=== PATIENT | male | born 1950 | race Caucasian/White ===

== ENCOUNTER → 2019-11-01 08:40 | Outpatient (BNVA) | payer MEDICARE, SELFPAY | PROVIDERS: Family Provider Family Medicine; PCP Family Medicine; Visit Provider Family Medicine | DX: I10 Essential (primary) hypertension (principal); E03.9 Hypothyroidism, unspecified | CPT/HCPCS: 80053; 80061; 84443 ==

== ENCOUNTER → 2020-05-01 10:16 | Outpatient (BNVA) | payer MEDICARE, SELFPAY | PROVIDERS: Family Provider Family Medicine; PCP Family Medicine; Visit Provider Family Medicine | DX: I10 Essential (primary) hypertension (principal); E78.5 Hyperlipidemia, unspecified | CPT/HCPCS: 80053; 80061 ==

== ENCOUNTER → 2020-10-27 08:31 | Outpatient (BNVA) | payer MEDICARE, SELFPAY | PROVIDERS: Family Provider Family Medicine; PCP Family Medicine; Visit Provider Family Medicine | DX: I10 Essential (primary) hypertension (principal); E03.9 Hypothyroidism, unspecified; E78.5 Hyperlipidemia, unspecified; F41.1 Generalized anxiety disorder | CPT/HCPCS: 80053; 84443; 85025 ==

== ENCOUNTER → 2021-04-27 10:21 | Outpatient (BNVA) | payer MEDICARE, SELFPAY | PROVIDERS: Family Provider Family Medicine; PCP Family Medicine; Visit Provider Family Medicine | DX: E03.9 Hypothyroidism, unspecified (principal); N13.8 Other obstructive and reflux uropathy; N40.1 Benign prostatic hyperplasia with lower urinary tract symptoms; E78.5 Hyperlipidemia, unspecified | CPT/HCPCS: 80053; 80061; 84153; 84443 ==

== ENCOUNTER → 2021-05-31 14:53 | Outpatient (BNVA) | payer MEDICARE, SELFPAY | PROVIDERS: Family Provider Family Medicine; PCP Family Medicine; Visit Provider Family Medicine | DX: E03.9 Hypothyroidism, unspecified (principal) | CPT/HCPCS: 84443 ==

== ENCOUNTER → 2021-10-26 10:24 | Outpatient (BNVA) | payer MEDICARE, SELFPAY | PROVIDERS: Family Provider Family Medicine; PCP Family Medicine; Visit Provider Family Medicine | DX: I10 Essential (primary) hypertension (principal); E03.9 Hypothyroidism, unspecified; R14.0 Abdominal distension (gaseous); K90.41 Non-celiac gluten sensitivity | CPT/HCPCS: 80053; 84443; 85025 ==

== ENCOUNTER 2022-03-27 13:30 | Inpatient (IN) | payer MEDICARE, SELFPAY ==
[2022-03-27] VITALS (57 sets, daily range): BP systolic 131–159; BP diastolic 68–111; PULSE 47–88; RESP 13–28; TEMP 36.5–36.9; O2SAT 94–99; BMI 30.5
--- NOTE | 2022-03-27 13:32 | XRR_ITS ---
PROCEDURE INFORMATION: Exam: XR Chest Exam date and time: 03/27/2022 2:00 PM Age: 71 years old Clinical indication: Pain; Chest pressure; Additional info: Chest pain TECHNIQUE: Imaging protocol: Radiologic exam of the chest. Views: 1 view. COMPARISON: CR XR chest 1V [id number] 02/03/2018 12:24 PM FINDINGS: Lungs: Unremarkable. No consolidation. Pleural spaces: Unremarkable. No pleural effusion. No pneumothorax. Heart/Mediastinum: Unremarkable. No cardiomegaly. Bones/joints: Unremarkable. Other findings: Patient rotation to the right. XR/XR chest 1V portable [id number] IMPRESSION: No acute findings.
--- NOTE | 2022-03-27 13:35 | ECG_ITS ---
[facility] Test Date: 2022-03-27 Pat Name: Esvin Cardenas Department: Room: Gender: Male Gate Agent: : 1950 Requested By: Gary Arauz Order Number: [id number] Adam MD: Davonte Quintana M.D. Measurements Intervals [place] Rate: 49 P: 7 OK: 180 QRS: 11 QRSD: 98 T: 2 QT: 411 QTc: 373 Interpretive Statements SINUS BRADYCARDIA Compared to ECG 07/26/2017 22:23:00 Sinus rhythm no longer present Electronically Signed On 03-27-2022 22:06:46 CDT by Davonte Quintana M.D. [id number]
--- NOTE | 2022-03-27 13:53 | W.ED.CHESTPA ---
HPI - Chest Pain General: Chief Complaint: Chest Pain Stated Complaint: Chest Pain Time Seen by Provider: 03/27/22 13:53 History of Present Illness: Mr. Cardenas is a 71-year-old gentleman with history of hypertension, hyperlipidemia, thyroid disorder presenting to the emergency department with concern over chest pain equivalent. He reports no history of frequent episodes and a few days ago began having episodes of discomfort with pain primarily in his back between his shoulder blades radiating down the arms into the neck and abdomen. Today he had cold sweats associated with this and symptoms have persisted where they went away before. Intensity symptoms is moderate to severe. Course has worsened. No other specific changes in health, exacerbating, or alleviating factors identified. Onset (ago): day(s) Timing of current episode: constant Prior episodes: No Onset: during rest Pain location: posterior Pain radiation: right arm, left arm, neck and abdomen Severity: severe Quality: aching and burning Relieving factors: nothing Exacerbating factors: nothing Review of Systems General: Reports: 10 or more systems reviewed and unremarkable except in HPI and below PFSH ED PFSH: Medical History Benign essential HTN BPH with obstruction/lower urinary tract symptoms Chronic post-traumatic stress disorder Generalized anxiety disorder Hypothyroidism (acquired) Major depressive disorder, recurrent, in full remission Microscopic hematuria Urinary retention with incomplete bladder emptying Surgical History Status post hemorrhoidectomy HEMORRHOID BANDING Status post right knee surgery Family History Mother , AT AGE 85-COMPLICATIONS OF DIABETES Diabetes Father , AT AGE 79-[place] No problems noted. Social History Smoking and tobacco status: former smoker Alcohol intake: never Physical Exam Const: COMMON NORMALS: alert GENERAL APPEARANCE: cooperative and well developed HENMT: COMMON NORMALS: normocephalic and atraumatic HEAD & SCALP: normocephalic and atraumatic Eye: COMMON NORMALS: conjunctivae normal CONJUNCTIVA: Yes conjunctivae normal SCLERA: sclerae normal Neck/C-Spine: COMMON NORMALS: supple GENERAL: Yes trachea midline Resp: COMMON NORMALS: normal respiratory effort and clear to auscultation bilaterally EFFORT & INSPECTION: Yes able to speak in complete sentences AUSCULTATION: clear to auscultation bilaterally Cardio: COMMON NORMALS: regular rate and regular rhythm RATE: regular rate RHYTHM: regular rhythm GI: COMMON NORMALS: Soft to palpation PALPATION: Yes Soft to palpation and No Tenderness to palpation present (GI) PERCUSSION: normal to percussion Extremity: GENERAL: Yes normal exam except as noted and No edema Neuro: COMMON NORMALS: moves all extremities SENSORIUM/ORIENTATION: Yes alert and No Orientation impaired Psych: COMMON NORMALS: mental status grossly normal and Normal thought process present THOUGHT PROCESS: Normal thought process present Course Vital Signs: Vital signs: Vital Signs Temperature 98.0 F 03/29/22 10:41 Pulse Rate 63 03/29/22 10:41 Respiratory Rate 16 03/29/22 10:41 Blood Pressure 132/62 03/29/22 10:41 Pulse Oximetry 94 03/29/22 10:41 Oxygen Delivery Me thod 03/29/22 07:37 MDM - Chest Pain Medical Decision Making 71-year-old gentleman presenting for evaluation of chest pain with typical features. EKG notable for sinus rhythm with nonspecific ST segment abnormalities, no STEMI. Laboratory studies with no leukocytosis, normal hemoglobin. Metabolic end without acute derangement requiring intervention. 2-hour delta troponin is positive. Chest x-ray with no lobar consolidation or pneumothorax. Patient given aspirin and morphine as well as GI cocktail during ED course. Patient admitted for further management. Based on patient history, evaluation, and testing as interpreted the most likely cause of the patient's condition is NSTEMI The results of ED evaluation were discussed with the patient including plan for admission due to requirement for level of care not available if discharged to prevent significant worsening/deterioration. Patient agreeable with plan. Medical Records I reviewed the patient's medical records. Lab Data I reviewed the patient's lab results. : 03/29/22 05:19 03/29/22 05:19 Radiology Impressions Chest X-Ray 03/27/22 13:32 IMPRESSION: No acute findings. Abdomen/Pelvis CT 03/27/22 17:15 IMPRESSION: No acute findings. Chest CTA 03/27/22 17:15 IMPRESSION: 1. Near complete resolution of superior segment left lower lobe pneumonia since the previous exam. 2. 1.5 cm pulmonary nodule superior segment left lower lobe consistent with scar from previous pneumonia versus neoplasm such as scar carcinoma/lung carcinoma. Followup as discussed below. 3. Mild calcified coronary artery disease. For both low risk and high risk patients, consider CT Chest at 3 months, PET/CT, or biopsy. (Reference: Farhat) References: Farhat Lebrno, et al. Guidelines for Management of Incidental Pulmonary Nodules Detected on CT Images: From the Fleischner Society 2017. Radiology. 2017;284(1):228-243. Laboratory Results WBC 8.2 10^3/uL (4.0-10.0) 03/28/22 03:40 RBC 4.41 10^6/uL (4.1-5.3) 03/28/22 03:40 Hgb 14.1 g/dL (11.7-16.6) 03/28/22 03:40 Hct 44.2 % (42.0-52.0) 03/28/22 03:40 MCV 100.2 fl (80-94) H 03/28/22 03:40 MCH 32.0 pg (28.0-34.0) 03/28/22 03:40 MCHC 31.9 g/dL (30.0-36.0) D 03/28/22 03:40 RDW 13.0 % (12.1-15.1) 03/28/22 03:40 Plt Count 282 10^3/cmm (130-400) 03/28/22 03:40 MPV 8.7 fL (7.4-10.4) 03/28/22 03:40 Neut % (Auto) 51.5 % 03/28/22 03:40 Lymph % (Auto) 33.9 % 03/28/22 03:40 Evangeline % (Auto) 8.2 % 03/28/22 03:40 Eos % (Auto) 5.3 % 03/28/22 03:40 Baso % (Auto) 0.9 % 03/28/22 03:40 Neut # (Auto) 4.22 10^3/uL (1.8-7.7) 03/28/22 03:40 Lymph # (Auto) 2.8 10^3/uL (0.8-4.8) 03/28/22 03:40 Evangeline # (Auto) 0.7 10^3/uL (0.2-0.9) 03/28/22 03:40 Eos # (Auto) 0.4 10^3/uL (0.0-0.8) 03/28/22 03:40 Baso # (Auto) 0.1 10^3/uL (0.0-0.1) 03/28/22 03:40 Nucleated RBC % (auto) 0 % 03/28/22 03:40 Nucleated RBCs # 0.0 /100WBC 03/28/22 03:40 Sodium 138 mmol/L (136-145) 03/28/22 03:40 Potassium 4.0 mmol/L (3.5-5.1) 03/28/22 03:40 Chloride 101 mmol/L (98-107) 03/28/22 03:40 Carbon Dioxide 27 mmol/L (22-29) 03/28/22 03:40 Anion Gap 14.0 (5-19) 03/28/22 03:40 BUN 12 mg/dL (8-23) 03/28/22 03:40 Creatinine 0.7 mg/dL (0.7-1.2) 03/28/22 03:40 GFR Calculation 111.5 mL/min (90-130) 03/28/22 03:40 Glucose 96 mg/dL (65-115) 03/28/22 03:40 Calculated Osmolality 286 mOsm/kg (285-295) 03/28/22 03:40 Calcium 9.0 mg/dL (8.5-10.5) 03/28/22 03:40 Total Bilirubin 0.6 mg/dL (0.15-1.2) 03/28/22 03:40 AST 40 U/L (0-40) 03/28/22 03:40 ALT 25 U/L (0-41) 03/28/22 03:40 Alkaline Phosphatase 82 U/L (40-130) 03/28/22 03:40 Troponin T Baseline 101 ng/L (0-15) H* 03/27/22 14:00 Troponin T 120 Minute 131.9 ng/L (0-15) H 03/27/22 15:53 Delta Troponin T 30.9 ABS# (0-10) H* 03/27/22 15:53 Troponin T Hi Sens 6Hr 321.6 ng/L (0-15) H 03/27/22 20:10 Troponin T Hi Sens 6Hr Delta 220.6 ng/L (0-12) H* 03/27/22 20:10 Total Protein 6.5 g/dL (6.6-8.7) L 03/28/22 03:40 Albumin 3.7 g/dL (3.5-5.2) 03/28/22 03:40 Globulin 2.8 g/dL (1.3-4.6) 03/28/22 03:40 Critical Care Time Critical Care Time: Critical Care Time: Yes Total Critical Care Time: 35 Attestation: Due to a high probability of clinically significant, possibly life threatening deterioration, the patient required my highest level of attention and preparedness to intervene emergently and I personally spent this critical care time directly and personally managing the patient. This critical care time included obtaining a history; examining the patient; pulse oximetry; ordering and review of laboratory and imaging studies; arranging urgent treatment with development of a management plan; evaluation of patient's response to treatment; frequent reassessment; and, discussions with other providers as applicable. It was exclusive of separately billable procedures. Discharge Plan Discharge Patient Disposition: Placed in Observation Admit Provider: Eder Galo Clinical Impression: Chest pain, Acute non-ST elevation myocardial infarction (NSTEMI) Discharge Diet: Cardiac Discharge Activity: Resume usual activity and Increase activity as tolerated Coding Level of Care Code ED Building Construction Ironworker for Aga Fwd Exam Comprehensive
[2022-03-27 14:08] LABS: Basophils # 0.1 10^3/uL (0.0-0.1); Basophils % 0.7 %; Eosinophils # 0.6 10^3/uL (0.0-0.8); Eosinophils % 6.3 %; Hematocrit 45.8 % (42.0-52.0); Hemoglobin 15.8 g/dL (11.7-16.6); Lymphocytes # 2.2 10^3/uL (0.8-4.8); Lymphocytes % 23.2 %; Mean Corpuscular HGB Conc 34.5 g/dL (30.0-36.0); Mean Corpuscular Hemoglobin 33.4 pg (28.0-34.0); Mean Corpuscular Volume 96.8 fl (80-94); Mean Platelet Volume 8.7 fL (7.4-10.4); Monocytes # 0.6 10^3/uL (0.2-0.9); Monocytes % 5.9 %; Neutrophils # 5.93 10^3/uL (1.8-7.7); Neutrophils % 63.6 %; Nucleated Red Blood Cells % 0 %; Platelet Count 306 10^3/cmm (130-400); Red Blood Count 4.73 10^6/uL (4.1-5.3); Red Cell Distribution Width 12.7 % (12.1-15.1); White Blood Count 9.3 10^3/uL (4.0-10.0)
[2022-03-27 14:34] LABS: Alanine Aminotransferase 26 U/L (0-41); Albumin Level 4.5 g/dL (3.5-5.2); Alkaline Phosphatase 96 U/L (40-130); Anion Gap 15.5 (5-19); Aspartate Amino Transferase 27 U/L (0-40); Blood Urea Nitrogen 12 mg/dL (8-23); Calcium 9.7 mg/dL (8.5-10.5); Carbon Dioxide 27 mmol/L (22-29); Chloride 97 mmol/L (98-107); Creatinine Clr Calc Pharmacy 106.1949; Globulin 3.2 g/dL (1.3-4.6); Glomerular Filtration Rate 95.6 mL/min (90-130); Glucose 119 mg/dL (65-115); Osmolality Calculated 281 mOsm/kg (285-295); Potassium 4.5 mmol/L (3.5-5.1); Sodium 135 mmol/L (136-145); Total Bilirubin 0.5 mg/dL (0.15-1.2); Total Protein 7.7 g/dL (6.6-8.7)
[2022-03-27 14:37] LABS: Troponin(5th) Baseline 101 ng/L (0-15)
[2022-03-27] MEDS: aspirin 81 mg Chew Tablet 324 MG PO (14:42)
[2022-03-27] MEDS: lidocaine 2% viscous 15 ML, aluminum-mag hydrox-simethicon 30 ML, sucralfate oral liq 1 GM PO (14:43)
[2022-03-27] MEDS: morphine 4 mg/mL SDV 1 mL IVP (14:44)
--- NOTE | 2022-03-27 15:32 | ECG_ITS ---
[facility] Test Date: 2022-03-27 Pat Name: Esvin Cardenas Department: Room: Gender: Male Band Director: : 1950 Requested By: Gray Arauz Order Number: [id number] Adam MD: Davonte Quintana M.D. Measurements Intervals [place] Rate: 52 P: 89 VT: 181 QRS: 12 QRSD: 101 T: -9 QT: 394 QTc: 368 Interpretive Statements SINUS BRADYCARDIA Compared to ECG 03/27/2022 13:35:44 No significant changes Electronically Signed On 03-27-2022 22:05:23 CDT by Davonte Quintana M.D. [id number]
[2022-03-27 16:56] LABS: Troponin 5 2HR 131.9 ng/L (0-15); Troponin 5 2HR Delta 30.9 ABS# (0-10)
--- NOTE | 2022-03-27 17:15 | CTR_ITS ---
PROCEDURE INFORMATION: Exam: CTA Chest Without And With Contrast Exam date and time: 03/27/2022 5:59 PM Age: 71 years old Clinical indication: Pain; Chest pressure; Additional info: Chest pain radiating to back, neck, arms, abdomen, assess for dissection, any large pe TECHNIQUE: Imaging protocol: Computed tomographic angiography of the chest without and with contrast. 3D rendering (Not supervised by radiologist): MIP and/or 3D reconstructed images were created by the technologist. Radiation optimization: All CT scans at this facility use at least one of these dose optimization techniques: automated exposure control; mA and/or kV adjustment per patient size (includes targeted exams where dose is matched to clinical indication); or iterative reconstruction. Contrast material: OMNIPAQUE 350; Contrast volume: 100 ml; Contrast route: INTRAVENOUS (IV); COMPARISON: CT chest w con* [id number] 05/19/2016 9:00 AM RADIATION DOSE METRICS: Total DLP (mGy-cm): 978.95 FINDINGS: Pulmonary arteries: Normal. No pulmonary emboli. Aorta: Calcification of the thoracic aorta and/or great vessels consistent with atherosclerotic vessel disease. Calcification of the abdominal aorta and/or iliac arteries consistent with atherosclerotic vessel disease. Lungs: Near complete resolution of superior segment left lower lobe pneumonia since the previous exam. 1.5 cm pulmonary nodule superior segment left lower lobe consistent with scar from previous pneumonia versus neoplasm. Followup as discussed below. Pleural spaces: Stable right apical pleural and/or parenchymal scarring. Heart: Mild calcified coronary artery disease. Lymph nodes: Unremarkable. No enlarged lymph nodes. Bones/joints: Unremarkable. No acute fracture. Soft tissues: Unremarkable. CT/CT angio chest [id number] IMPRESSION: 1. Near complete resolution of superior segment left lower lobe pneumonia since the previous exam. 2. 1.5 cm pulmonary nodule superior segment left lower lobe consistent with scar from previous pneumonia versus neoplasm such as scar carcinoma/lung carcinoma. Followup as discussed below. 3. Mild calcified coronary artery disease. For both low risk and high risk patients, consider CT Chest at 3 months, PET/CT, or biopsy. (Reference: Farhat) References: Farhat Lebron et al. Guidelines for Management of Incidental Pulmonary Nodules Detected on CT Images: From the Fleischner Society 2017. Radiology. 2017;284(1):228-243.
--- NOTE | 2022-03-27 17:15 | CTR_ITS ---
PROCEDURE INFORMATION: Exam: CT Abdomen And Pelvis Without Contrast Exam date and time: 03/27/2022 5:56 PM Age: 71 years old Clinical indication: Abdominal pain TECHNIQUE: Imaging protocol: Computed tomography of the abdomen and pelvis without contrast. Radiation optimization: All CT scans at this facility use at least one of these dose optimization techniques: automated exposure control; mA and/or kV adjustment per patient size (includes targeted exams where dose is matched to clinical indication); or iterative reconstruction. COMPARISON: CT abdomen pelvis wo/w [id number] 11/16/2017 1:41 PM RADIATION DOSE METRICS: Total DLP (mGy-cm): 856.93 FINDINGS: Liver: Normal. No mass. Gallbladder and bile ducts: Normal. No calcified stones. No ductal dilation. Pancreas: Normal. No ductal dilation. Spleen: Normal. No splenomegaly. Adrenal glands: Normal. No mass. Kidneys and ureters: Normal. No hydronephrosis. Stomach and bowel: Unremarkable. No obstruction. No mucosal thickening. Appendix: Normal appendix. Intraperitoneal space: Unremarkable. No free air. No significant fluid collection. Vasculature: Calcification of the abdominal aorta and/or iliac arteries consistent with atherosclerotic vessel disease. One or more calcified pelvic phleboliths. Lymph nodes: Unremarkable. No enlarged lymph nodes. Urinary bladder: Unremarkable as visualized. Reproductive: Unremarkable as visualized. Bones/joints: Mild to moderate multilevel spine degenerative changes including degenerative disc disease, spondylosis and facet degenerative changes. Soft tissues: Unremarkable. CT/CT abdomen pelvis wo con [id number] IMPRESSION: No acute findings.
--- NOTE | 2022-03-27 17:45 | P.HP_ITS ---
Providers/Chief Complaint Admitting Physician: Eder Galo Primary Care Provider: Mavis Calderon DO Chief Complaint: Chest Pain History of Present Illness Pleasant 71-year-old gentleman presents due to about 3-day history of recurrent pain inside his chest, radiating to his back, neck, arms, abdomen. Pain is bothersome. Not related to activity. Sometimes wakes him up from sleep. 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 However, he has also been having quite significant sweats, denies fever. Denies cough or shortness of breath. Did not figure that acid reflux could be causing this. He denies known history of heart disease in himself. No prior stents. He is a former smoker, quit 15-20 years ago, but does have history of HTN, HLD. His father of massive heart attack at age 79. In ER noted sinus bradycardia, nonspecific changes on EKG. First troponin elevated at 101, second troponin higher at 131.9. In ER he received aspirin, morphine, GI cocktail. So far pain resolved. Review of Systems Const: Reports: diaphoresis; Denies: fever(s) or malaise Eyes: Denies: change in vision, eye discomfort or eye redness ENMT: Denies: throat pain, oral sores or ear or mastoid pain Card: Reports: chest pain; Denies: edema, pre-syncope or dyspnea on exertion Resp: Denies: dyspnea, productive cough, change in phlegm color or hemoptysis GI: Denies: abdominal pain, nausea, vomiting, diarrhea, constipation, hematochezia or melena : Denies: flank pain, difficulty urinating, urinary frequency or hematuria Musc: Reports: back pain; Denies: joint swelling or joint redness Skin/Breast: Denies: rash or new lesions Neuro: Denies: headache(s), numbness in extremities, weakness in extremities, dizziness, confusion or seizure-like activity Endo: Denies: polyuria or polydipsia Elian/Lymph: Denies: easy bleeding or tender lymph nodes All/Imm: Denies: urticaria or tongue swelling Medications/Allergies Home Medications Medication Instructions Recorded Confirmed Last Taken Type alprazolam 0.5 mg tablet (Xanax) 0.5 mg PO BID PRN anxiety #60 tabs 10/26/21 03/27/22 Unknown Rx metoprolol tartrate 50 mg tablet See Rx Instructions .Route 11/01/21 03/27/22 03/27/22 Rx .COMPLEX #180 tabs levothyroxine 88 mcg tablet 88 mcg PO DAILY 90 days #90 tabs 11/04/21 03/27/22 03/27/22 Rx (Euthyrox) Allergies Allergy/AdvReac Type Severity Reaction Status Date / Time guaifenesin [From Mucinex] Allergy UNKNOWN Verified 10/26/21 09:47 meperidine [From Demerol] Allergy UNKNOWN Verified 10/26/21 09:47 prednisone Allergy UNKNOWN Verified 10/26/21 09:47 atorvastatin AdvReac Mild COULDN'T Verified 10/26/21 09:47 SLEEP & DIDN'T FEEL RIGHT PFSH Acute PFSH: Medical History Benign essential HTN BPH with obstruction/lower urinary tract symptoms Chronic post-traumatic stress disorder Generalized anxiety disorder Hypothyroidism (acquired) Major depressive disorder, recurrent, in full remission Microscopic hematuria Urinary retention with incomplete bladder emptying Surgical History Status post hemorrhoidectomy HEMORRHOID BANDING Status post right knee surgery Family History Mother , AT AGE 85-COMPLICATIONS OF DIABETES Diabetes Father , AT AGE 79-[place] No problems noted. Social History Smoking and tobacco status: former smoker Alcohol intake: never Vitals/I&O/Wt Last Vital Signs Temp 97.7 F 03/27/22 13:32 Pulse 72 03/27/22 17:35 Resp 17 03/27/22 17:35 BP 159/111 03/27/22 17:35 Pulse Ox 98 03/27/22 17:35 O2 Del Method 03/27/22 13:32 Weight last 48 hrs Weight 102.058 kg Physical Exam Const: COMMON NORMALS: patient oriented x3 and alert GENERAL APPEARANCE: cooperative ORIENTATION/CONSCIOUSNESS: Yes awake HENMT: COMMON NORMALS: oropharynx normal Neck/C-Spine: COMMON NORMALS: no JVD Resp: COMMON NORMALS: normal respiratory effort and clear to auscultation bilaterally AUSCULTATION: clear to auscultation bilaterally Cardio: COMMON NORMALS: no JVD, regular rhythm, S1 normal heart sound present, S2 normal heart sound present and No murmurs present (Cardio) RHYTHM: regular rhythm HEART SOUNDS: S1 normal heart sound present and S2 normal heart sound present GI: COMMON NORMALS: Normal to inspection, nondistended, normoactive bowel sounds present, Soft to palpation and non-tender PALPATION: Yes Soft to palpation Extremity: COMMON NORMALS: no joint enlargement and no pedal edema Neuro: COMMON NORMALS: patient oriented x3 and moves all extremities SENSORIUM/ORIENTATION: Yes alert Skin: COMMON NORMALS: no rashes or lesions noted GENERAL SKIN EXAM: no rashes or lesions noted Data : 03/27/22 14:00 03/27/22 14:00 A&P Assessment and plan (1) Acute non-ST elevation myocardial infarction (NSTEMI): Complete troponin EKG series. Additional assessment with CT angiogram chest. NSTEMI with chest pain, moderate to severe elevation of troponin with positive delta as well. History of HTN, HLD, obesity, remote history of smoking, history of OR in his father. Received aspirin. We will additionally start anticoagulation after CT. Continue aspirin, beta-fabian. Add statin. Assess TTE. Cardiology consultation. Plavix per cardiology. Cardiac monitoring. (2) Chest pain: Chest pain rating to the back, neck, arms, abdomen. Additionally assessed with CT angiogram chest. Plain CT abdomen pelvis. Plan HTN HLD CLAY Hypothyroidism Depression Other chronic problems noted. Attestations Medical Necessity Statement*: Place in observation for additional assessment and management of NSTEMI. Coding Level of Care Code Acute Amortization Schedule Clerk for Aga Wahl Diagnoses Acute non-ST elevation myocardial infarction (NSTEMI) I21.4 Chest pain R07.9
[2022-03-27] MEDS: iohexol 350 mg/mL 100 mL Btl IV (18:02)
--- NOTE | 2022-03-27 18:12 | USCV_ITS ---
Esvin Cardenas Age: 71 Gender: M : 1950 Exam Date: 03/27/2022 22:27 Ordering Phys: Eder Galo MD Technologist: Sofia Hylton Exam Location: [facility] [place] Indication: NSTEMIL BP: 159 / 103 HR: 65 Rhythm: Sinus Technical Quality: Adequate MEASUREMENTS (Male / Female) Normal Values 2D ECHO LV Diastolic Diameter PLAX 4.4 cm 4.2 - 5.9 / 3.9 - 5.3 cm LV Systolic Diameter PLAX 2.8 cm LV Chamber Size 3.6 cm IVS Diastolic Thickness 1.0 cm 0.6 - 1.0 / 0.6 - 0.9 cm IVS Systolic Thickness 1.8 cm LVPW Diastolic Thickness 1.5 cm 0.6 - 1.0 / 0.6 - 0.9 cm LVPW Systolic Thickness 1.6 cm RV Chamber Size 4.1 cm LVOT Diameter 2.0 cm LV Ejection Fraction 2D Teich 65.7 % LV Ejection Fraction MOD 2C 58.5 % LV Ejection Fraction 2C AL 61.0 % LA Diameter 3.3 cm LA Width 3.0 cm LA Height 4.5 cm RA Width 3.3 cm RA Height 4.2 cm Aorta at Sinotubular Diameter 2.7 cm IVC Diameter 2.0 cm M-MODE Aortic Annulus Diameter 3.5 cm LA Ao Ratio MM 1.1 MV E Point Septal Separation 0.4 cm DOPPLER AV Peak Velocity 173.0 cm/s LVOT Peak Velocity 81.0 cm/s AV Area Cont Eq vti 1.6 cm squared AV Area Cont Eq pk 1.5 cm squared MV Area PHT 3.1 cm squared Mitral E to A Ratio 0.9 MV E' Velocity 37.5 cm/s Mitral E to MV E' Ratio 12.3 Mitral E to LV E' Lateral Ratio 10.9 Mitral E to LV E' Septal Ratio 14.1 TR Peak Velocity 158.4 cm/s TR Peak Gradient 10.0 mmHg TR Mean Velocity 99.4 cm/s TR Mean Gradient 4.9 mmHg TR Velocity Time Integral 32.3 cm TV Peak E Velocity 75.0 cm/s RV Acceleration Time 0.1 s RV Ejection Time 0.3 s RV AcT/ET 0.3 FINDINGS Left Ventricle Left ventricle is normal in size. LV systolic function is normal with EF of 60-65%. No regional wall motion abnormalities are seen. Grade 1 diastolic dysfunction Right Ventricle RV is normal in size and function Right Atrium Normal in size Left Atrium Normal in size Mitral Valve Structurally normal mitral valve. No significant stenosis or regurgitation Aortic Valve Aortic valve is thickened. No significant stenosis or regurgitation is seen. Tricuspid Valve Mild tricuspid regurgitation. Insufficient TR jet to calculate RVSP. Pulmonic Valve Not well-visualized Pericardium Normal Aorta Normal in size IVC Not well visualized CONCLUSIONS Left ventricle is normal in size. LV systolic function is normal with EF of 60-65% Grade 1 diastolic dysfunction Mild tricuspid regurgitation Compared to prior echocardiogram from 2014, no significant changes are seen. Davonte Quintana MD (Electronically Signed) Final Date: 28 March 2022 08:39 S
[2022-03-27] MEDS: pantoprazole DR 40 mg Tablet PO (18:48)
[2022-03-27] MEDS: enoxaparin 100 mg/mL Syringe SUBCUT (19:54)
[2022-03-27 20:55] LABS: Troponin 5 6HR 321.6 ng/L (0-15); Troponin 5 6HR Delta 220.6 ng/L (0-12)
[2022-03-27] MEDS: atorvastatin 40 mg Tablet PO (21:09)
--- NOTE | 2022-03-27 21:33 | P.CONIM_ITS ---
Providers/Reason For Consult Consulting Physician/Specialty*: Davonte Quintana MD/Cardiology Reason for Consult*: NSTEMI Requesting Physician: Dr Sandoval Attending Physician: Eder Galo Primary Care Provider: Mavis Calderon DO History of Present Illness History of Present Illness Esvin Cardenas is a 71 year old male with past medical history of hypothyroidism who presented to the hospital with worsening bilateral shoulder blade pain for several days. Also was having discomfort and epigastrium radiating to jaw and both arms. Today got worse and decided to come to the hospital. His initial troponin was 101 that trended up to 321 at 6 hours. Since coming to the hospital chest pain has resolved. EKG shows T wave inversions in inferior leads and sinus bradycardia. Denies any prior cardiac history. Review of Systems Const: Reports: diaphoresis; Denies: fever(s) or malaise Eyes: Denies: change in vision, eye discomfort or eye redness ENMT: Denies: throat pain, oral sores or ear or mastoid pain Card: Reports: chest pain; Denies: edema, pre-syncope or dyspnea on exertion Resp: Denies: dyspnea, productive cough, change in phlegm color or hemoptysis GI: Denies: abdominal pain, nausea, vomiting, diarrhea, constipation, hematochezia or melena : Denies: flank pain, difficulty urinating, urinary frequency or hematuria Musc: Reports: back pain; Denies: joint swelling or joint redness Skin/Breast: Denies: rash or new lesions Neuro: Denies: headache(s), numbness in extremities, weakness in extremities, dizziness, confusion or seizure-like activity Endo: Denies: polyuria or polydipsia Elian/Lymph: Denies: easy bleeding or tender lymph nodes All/Imm: Denies: urticaria or tongue swelling Medications/Allergies Home Medications Medication Instructions Recorded Confirmed Last Taken Type alprazolam 0.5 mg tablet (Xanax) 0.5 mg PO BID PRN anxiety #60 tabs 10/26/21 03/27/22 Unknown Rx metoprolol tartrate 50 mg tablet See Rx Instructions .Route 11/01/21 03/27/22 03/27/22 Rx .COMPLEX #180 tabs levothyroxine 88 mcg tablet 88 mcg PO DAILY 90 days #90 tabs 11/04/21 03/27/2222 Rx (Euthyrox) Allergies Allergy/AdvReac Type Severity Reaction Status Date / Time guaifenesin [From Mucinex] Allergy UNKNOWN Verified 10/26/21 09:47 meperidine [From Demerol] Allergy UNKNOWN Verified 10/26/21 09:47 prednisone Allergy UNKNOWN Verified 10/26/21 09:47 atorvastatin AdvReac Mild COULDN'T Verified 10/26/21 09:47 SLEEP & DIDN'T FEEL RIGHT Current Medications Generic Name Dose Route Start Last Admin Trade Name John PRN Reason Stop Dose Admin Atorvastatin Calcium 40 mg 03/27/22 21:00 03/27/22 21:09 Atorvastatin 40 Mg Tablet PO 40 mg BEDTIME CONCETTA Administration Enoxaparin Sodium 100 mg 03/27/22 19:00 03/27/22 19:54 Enoxaparin 100 Mg/Ml Syringe 1 mg/kg (100 mg) 100 mg SUBCUT Administration Q12H CONCETTA Pantoprazole Sodium 40 mg 03/27/22 18:12 03/27/22 18:[address] 40 Mg Tablet PO 40 mg BID CONCETTA Administration PFSH Acute PFSH: Medical History Benign essential HTN BPH with obstruction/lower urinary tract symptoms Chronic post-traumatic stress disorder Generalized anxiety disorder Hypothyroidism (acquired) Major depressive disorder, recurrent, in full remission Microscopic hematuria Urinary retention with incomplete bladder emptying Surgical History Status post hemorrhoidectomy HEMORRHOID BANDING Status post right knee surgery Family History Mother , AT AGE 85-COMPLICATIONS OF DIABETES Diabetes Father , AT AGE 79-[place] No problems noted. Social History Smoking and tobacco status: former smoker Alcohol intake: never Vitals/I&O/Wt Last Vital Signs Temp 97.7 F 03/27/22 19:34 Pulse 67 03/27/22 19:34 Resp 18 03/27/22 19:34 BP 152/80 03/27/22 19:34 Pulse Ox 96 03/27/22 19:34 O2 Del Method 03/27/22 19:34 Weight last 48 hrs Weight 225 lb Physical Exam Narrative: GENERAL: Patient is alert, awake and oriented x3. [] NECK: No jugular vein distension. [] HEENT: No cyanosis. No icterus. No pallor. [] HEART: Regular S1 and S2. No murmur, rub or gallop. [] LUNGS: Clear to auscultate bilaterally. [] ABDOMEN: Soft, nontender and nondistended. Positive bowel sounds. No guarding, rebound or tenderness. [] CENTRAL NERVOUS SYSTEM: Grossly nonfocal. [] EXTREMITIES: Lower extremities with no edema bilaterally. Pulses palpable in the lower extremities, both dorsalis pedis and posterior tibial. [] Data : 03/28/22 03:40 03/28/22 03:40 A&P Assessment and plan (1) Acute non-ST elevation myocardial infarction (NSTEMI): (2) Benign essential HTN: (3) Dyslipidemia: Plan Patient has presented with non-ST elevation CA. We will proceed with coronary angiogram with possible percutaneous coronary intervention in the a.m. Risks and benefits of the procedure have been discussed with the patient. He understands the risks and benefits and wants to proceed with the procedure. Continue aspirin. Anticoagulation with Lovenox. Order echocardiogram. Thank you for involving us with care of this patient. We will continue to follow. Please call with questions. Consult Attestations Medical Necessity Statement: Care expected to cross 2 midnights. Coding Level of Care Code Acute Aircraft Engine Dismantler for Aga Wahl Diagnoses Acute non-ST elevation myocardial infarction (NSTEMI) I21.4 Benign essential HTN I10 Dyslipidemia E78.5
[2022-03-27] MEDS: acetaminophen 325 mg Tablet 650 MG PO (23:40)
[2022-03-28] VITALS (57 sets, daily range): BP systolic 86–147; BP diastolic 51–83; PULSE 51–97; RESP 11–21; TEMP 36.6–36.9; O2SAT 92–96
[2022-03-28 04:00] LABS: Basophils # 0.1 10^3/uL (0.0-0.1); Basophils % 0.9 %; Eosinophils # 0.4 10^3/uL (0.0-0.8); Eosinophils % 5.3 %; Hematocrit 44.2 % (42.0-52.0); Hemoglobin 14.1 g/dL (11.7-16.6); Lymphocytes # 2.8 10^3/uL (0.8-4.8); Lymphocytes % 33.9 %; Mean Corpuscular HGB Conc 31.9 g/dL (30.0-36.0); Mean Corpuscular Volume 100.2 fl (80-94); Mean Platelet Volume 8.7 fL (7.4-10.4); Monocytes # 0.7 10^3/uL (0.2-0.9); Monocytes % 8.2 %; Neutrophils # 4.22 10^3/uL (1.8-7.7); Neutrophils % 51.5 %; Nucleated Red Blood Cells % 0 %; Platelet Count 282 10^3/cmm (130-400); Red Blood Count 4.41 10^6/uL (4.1-5.3); White Blood Count 8.2 10^3/uL (4.0-10.0)
[2022-03-28 04:29] LABS: Alanine Aminotransferase 25 U/L (0-41); Albumin Level 3.7 g/dL (3.5-5.2); Alkaline Phosphatase 82 U/L (40-130); Aspartate Amino Transferase 40 U/L (0-40); Blood Urea Nitrogen 12 mg/dL (8-23); Carbon Dioxide 27 mmol/L (22-29); Chloride 101 mmol/L (98-107); Creatinine Clr Calc Pharmacy 106.1949; Globulin 2.8 g/dL (1.3-4.6); Glomerular Filtration Rate 111.5 mL/min (90-130); Glucose 96 mg/dL (65-115); Osmolality Calculated 286 mOsm/kg (285-295); Sodium 138 mmol/L (136-145); Total Bilirubin 0.6 mg/dL (0.15-1.2); Total Protein 6.5 g/dL (6.6-8.7)
[2022-03-28] MEDS: sodium chloride 0.9% 1,000 ML 50 ML IV (06:06)
--- NOTE | 2022-03-28 06:08 | XACV_ITS ---
Exam Room: [facility] Ht: 183 cm Wt: 102 kg BSA: 2.30 m2 Gender: Male : 1950 Exam Priority: Routine Procedure(s): Procedure Description: Diagnostic procedure Procedure Description: PCI procedure Procedure Description: PTCA Procedure Description: Coronary Angiography Diagnostic Cath Status: Urgent Diagnostic Findings * Left Main has no significant disease. * Circumflex has mild luminal irregularities. * Proximal Right Coronary Artery: has 99% stenosis with thrombus seen, REE: 3 flow. * Proximal Left Anterior Descending to Mid Left Anterior Descending: minimal 30% stenosis, REE: 3 flow. * Coronary angiography shows right dominance. PCI Status: Urgent PCI Indication: NSTE - ACS Interventional Findings * Procedure detail: We engaged RCA with JR4 guide catheter. A 0.014 run-through guidewire was used to cross proximal severe stenosis and was put in distal vessel. IV heparin was administered to maintain ACT above 250 S. We predilated the stenosis with 2.5 x 12 mm semicompliant balloon. This was followed by placement of 3.0 x 12 mm resolute Colon drug-eluting stent. At this time final angiogram was performed that showed excellent stent expansion, no residual stenosis and REE-3 flow. Guidewire and guide catheter were removed. Patient left the Reweaver in a stable condition.. * Proximal Right Coronary Artery: 99% stenosis treated with a AB TREK 2.50X12 RX BALLOON, and MDT R ALLEN 3.0X12 GORGE. 0% residual stenosis, REE: 3 flow. Conclusions 1. Critical proximal RCA 2. stenosis with overlying thrombus. Status post successful revascularization with GORGE x1.. 3. Proximal Right Coronary Artery was treated with a Balloon, and Drug Eluting Stent. Recommendations * Dual antiplatelet therapy with aspirin and Plavix for at least 1 year. * Aggrastat for 4 hours. * Order echocardiogram. * High intensity statin therapy. * Outpatient cardiology follow up in 4 weeks. Interventional RX Recommendation: PCI w/o planned CABG Diagnostic RX Recommendation: PCI w/o planned CABG Anticoagulation: Heparin Pressures Phase:Rest AO : 111 / 82 ( 97 ) @ 8:57:00 AM Clinical Evaluation EBL: 5mL-10mL Procedural Details Procedure Consent Obtained. Admit Source: In Patient. Pre-Procedure Time Out. Identified patient by full name and date of as verbalized by the patient/guarantor. Does the consent match the physician's order: Yes. Accurate & Complete Informed Consent: Yes. Inpatient/Outpatient History & Physical on Chart: Yes. If H&P is completed, is and addenduem needed: N/A; If yes, is the addendum complete: N/A. Visualize and Verify Site with Patient/Guarantor: N/A. Relevant Radiology Images available: N/A. Pre-op teaching completed and patient verbalized understanding. The risks, benefits, and alternatives of sedation and/or procedure were discussed by physician. The patient agrees to continue. Procedure started. [facility] Clinical Fraility Score: 3: Managing Well. Reweaver Indications: New Onset Angina. Chest Pain Symptom Assessment: Typical Angina Symptoms. Correct patient, site and procedure confirmed by cath team. Current diagnosis: NSTEMI. PERRLA. Strong, equal hand silver chaser bilaterally. Lungs clear x 5 lobes. IV Site on Arrival: 20 gauge in the left anticubital. IV Fluids: 0.9% NaCl at KVO. 0 mL infused prior to pharmaceutical laboratory technician. Pre Procedural Pulses: right radial was 2+. Pre Procedural Pulses: bilateral dorsalis pedis was 2+. Oxygen started at 2liters/min via nasal canula. right groin was prepped with chloroprep then draped in the usual sterile fashion. right radial was prepped with chloroprep then draped in the usual sterile fashion. Physician notified. Baseline sample Acquired. HR: 94 BPM. Physician arrived. Physician scrubbed in. Immediate Pre-Procedure Time Out. Correct Patient: Yes; Correct Procedure: Yes; Correct Site: Yes; Correct Patient Position: Yes; Correct Supplies: Yes; Dried Flammable Prep: Yes; Blood Products Available: N/A;. Lidocaine 1% infiltrated to the right radial. Arterial access obtained. A 5 grenadian TIG catheter in over wire. Multiple views taken of left coronary artery. Catheter redirected to the RCA. Multiple views taken of right coronary artery. Catheter out. 6 grenadian JR 4 guide catheter was inserted over the wire. Runthrough guidewire was advanced through the guide catheter to lesion in the prox RCA. Balloon inserted to lesion in the prox RCA. Inflation number : 1 A AB TREK 2.50X12 RX BALLOON was prepped and advanced across the Prox RCA , then inflated to 12 ARVIND for 0:13 seconds. Results checked. Balloon out. Stent inserted to lesion in the prox RCA. Inflation Number : 2 A ROOSE[place]ELT Rosa ALLEN 3.0X12 GORGE -Lot Number# [id number] Exp 10/17/2024 was prepped and advanced across the Prox RCA. The stent was deployed at 12 ARVIND for 0:15 seconds. Results checked. Wire out. Stent balloon out over wire. Edith Landers RN was relieved by CHRISTI BaezaR) as monitoring person. Guide catheter out. ACT drawn. Results 236 seconds. Therapeutic limits - pre-heparin administration 90-150 seconds and monitoring heparin during a vascular procedure >250 seconds. A TR Band was successful obtaining hemostatsis at the Right Radial artery insertion site. Post Procedure: Pulses reassessed and unchanged. PERRLA. Strong, equal hand silver chaser bilaterally. No VTE prophylaxis required. Total IV fluids: 25 mL. Medication's Wasted: Nitro = 49.7 mg. Complications: None. Estimated blood loss: 5mL-10mL. Responsiveness - Normal response to verbal stimuli; alert and oriented, PERRLA. Airway - Unaffected, no intervention required; spontaneous ventilation. Circulation: W/N/L, pulses unchanged. Nausea/Vomiting: No. Procedure completed. Patient transferred by wheelchair to [facility]. Vital chart was stopped. Access Site Site: Right Radial artery Sheath Size: 6 Fr Hemostasis Method: TR Band Hemostasis Success: Successful Procedure Medications Start: 7:49 AM Stop: 7:49 AM Medication: Fentanyl Amount: 50 mcg Route: I.V. Start: 7:49 AM Stop: 7:49 AM Medication: Versed Amount: 1 mg Route: I.V. Start: 7:54 AM Stop: 7:54 AM Medication: Nitrogylcerin Amount: 200 mcg Route: I.A. Start: 7:56 AM Stop: 7:56 AM Medication: Heparin Amount: 5000 units Route: I.V. Start: 8:00 AM Stop: 8:00 AM Medication: Heparin Amount: 5000 units Route: I.V. Start: 8:07 AM Stop: 8:07 AM Medication: Nitrogylcerin Amount: 100 mcg Route: I.C. Start: 8:08 AM Stop: 8:08 AM Medication: Aggrastat 12.5 mg/250 mL Amount: 51 ml Route: I.V. bolus Start: 8:08 AM Stop: 8:08 AM Medication: Aggrastat 12.5 mg/250 mL Amount: 18.4 ml/hr Route: I.V. drip Start: 8:10 AM Stop: 8:10 AM Medication: Plavix Amount: 600 mg Route: P.O. Start: 8:13 AM Stop: 8:13 AM Medication: Heparin Amount: 1000 units Route: I.V. I, the attending physician, have reviewed and verified all procedure medications. Yes, all medications given per verbal order History/Risk Factors Hypertension: Yes Dyslipidemia: Yes Peripheral Arterial Disease (PAD): No Myocardial Infarction (AL): No Obesity: No Renal Disease: No Tobacco Use: Former Prior Interventions PCI: No CABG: No Valve Surgery: No Report Signatures Finalized by Davonte Quintana MD on 03/28/2022 08:26 AM
[2022-03-28] MEDS: diphenhydrAMINE 50 mg Capsule PO (06:10)
--- NOTE | 2022-03-28 07:45 | W.PM.OPSUD ---
Surgery/Procedure H&P Update DATE OF PROCEDURE: March 28, 2022 DATE H&P PERFORMED: 03/27/22 H&P UPDATE INFORMATION: I have reviewed H&P completed within last 30 days, I have examined patient prior to procedure and No changes to prior documentation PREOP DIAGNOSIS: NSTEMI PRIMARY INDICATION FOR PROCEDURE: NSTEMI PLANNED PROCEDURE: Operation Date: 03/28/22 07:15 Proposed Procedures p Cardiac Catheterization(Left) - Davonte Quintana M.D Possible percutaneous coronary intervention PATIENT REASSESSED PRIOR TO SEDATION, WITH NO CHANGE NOTED: Yes PHYSICAL EXAM: alert, oriented x 3, clear to auscultation bilaterally and regular rate & rhythm AIRWAY EVAL/ANESTHESIA PLAN: ASA III, Local Anesthesia, Risks, benefits & alternatives of sedation and/or procedure discussed and Patient agrees to continue as planned ADDITIONAL INFORMATION: Moderate sedation
--- NOTE | 2022-03-28 08:32 | P.PN_ITS ---
Subjective Subjective: Patient underwent coronary angiogram this morning. It showed critical proximal RCA 99% stenosis. He underwent successful revascularization with GORGE x1. He is chest pain-free at this time. Vitals/I&O/Wt Last Vital Signs Temp 97.8 F 03/28/22 04:34 Pulse 69 03/28/22 06:43 Resp 16 03/28/22 04:34 BP 106/59 03/28/22 04:34 Pulse Ox 96 03/28/22 04:34 O2 Del Method 03/28/22 04:34 Weight last 48 hrs Weight 225 lb Physical Exam Narrative: GENERAL: Patient is alert, awake and oriented x3. [] NECK: No jugular vein distension. [] HEENT: No cyanosis. No icterus. No pallor. [] HEART: Regular S1 and S2. No murmur, rub or gallop. [] LUNGS: Clear to auscultate bilaterally. [] ABDOMEN: Soft, nontender and nondistended. Positive bowel sounds. No guarding, rebound or tenderness. [] CENTRAL NERVOUS SYSTEM: Grossly nonfocal. [] EXTREMITIES: Lower extremities with no edema bilaterally. Pulses palpable in the lower extremities, both dorsalis pedis and posterior tibial. [] Data : 03/28/22 03:40 03/28/22 03:40 A&P Assessment and plan (1) Acute non-ST elevation myocardial infarction (NSTEMI): (2) Benign essential HTN: (3) Dyslipidemia: Plan Coronary angiogram revealed critical 99% proximal RCA stenosis. He underwent successful revascularization with GORGE x1. Aspirin and Plavix for at least 1 year We will keep him on Aggrastat drip for 4 hours. Echo shows normal LV systolic function. Thank you for involving us with care of this patient. We will continue to follow. We will observe him in the hospital for today and can be discharged home tomorrow if stable. Please call with questions. Attestations Medical Necessity Statement*: Care expected to cross 2 midnight Coding Level of Care Code Acute Customer Accounts Advisor for Aga Wahl Diagnoses Acute non-ST elevation myocardial infarction (NSTEMI) I21.4 Benign essential HTN I10 Dyslipidemia E78.5
[2022-03-28] MEDS: pantoprazole DR 40 mg Tablet PO ×2 (09:47→17:48)
[2022-03-28] MEDS: levothyroxine 88 mcg Tablet PO (09:47)
[2022-03-28] MEDS: metoprolol tartrate 50 mg Tablet PO (09:47)
[2022-03-28] MEDS: aspirin 81 mg EC Tablet PO (09:47)
[2022-03-28] MEDS: ALPRAZolam 0.5 mg Tablet PO ×2 (09:49→21:11)
--- NOTE | 2022-03-28 15:37 | P.PN_ITS ---
Subjective Subjective: Hospital course, labs appreciated. Today morning seen post angiogram. Underwent PCI. Denies any nausea, vomiting, headache. Remains on room air. Vitals/I&O/Wt Last Vital Signs Temp 98.1 F 03/28/22 12:00 Pulse 57 L 03/28/22 14:00 Resp 17 03/28/22 14:00 BP 131/80 03/28/22 14:00 Pulse Ox 93 03/28/22 12:00 O2 Del Method 03/28/22 12:00 03/28/22 03/28/22 03/28/22 06:59 14:59 22:59 Intake Total 120 / 120 Balance 120 / 120 Weight last 48 hrs Weight 102.058 kg Physical Exam Const: COMMON NORMALS: patient oriented x3 and alert GENERAL APPEARANCE: cooperative ORIENTATION/CONSCIOUSNESS: Yes awake HENMT: COMMON NORMALS: oropharynx normal Neck/C-Spine: COMMON NORMALS: no JVD Resp: COMMON NORMALS: normal respiratory effort and clear to auscultation bilaterally AUSCULTATION: clear to auscultation bilaterally Cardio: COMMON NORMALS: no JVD, regular rhythm, S1 normal heart sound present, S2 normal heart sound present and No murmurs present (Cardio) RHYTHM: regular rhythm HEART SOUNDS: S1 normal heart sound present and S2 normal heart sound present GI: COMMON NORMALS: Normal to inspection, nondistended, normoactive bowel sounds present, Soft to palpation and non-tender PALPATION: Yes Soft to palpation Extremity: COMMON NORMALS: no joint enlargement and no pedal edema Neuro: COMMON NORMALS: patient oriented x3 and moves all extremities SENSORIUM/ORIENTATION: Yes alert Skin: COMMON NORMALS: no rashes or lesions noted GENERAL SKIN EXAM: no rashes or lesions noted Data : 03/28/22 03:40 03/28/22 03:40 A&P Assessment and plan (1) Acute non-ST elevation myocardial infarction (NSTEMI): Post PCI with GORGE to RCA. Appreciate cardiology recommendation. Aspirin, Plavix, statin. Metoprolol 25 mg twice daily. Patient having bradycardia. Continue telemetry monitoring. Check A1c, statin. We will try to add GLADYS inhibitor prior to discharge. Echocardiogram shows an EF of 60 to 65%, grade 1 diastolic dysfunction without regional wall motion abnormality, mild TR (2) Chest pain: (3) Dyslipidemia: (4) Benign essential HTN: (5) Hypothyroidism (acquired): Plan HTN HLD CLAY Hypothyroidism Depression Other chronic problems noted. Full code. Cardiac diet. Protonix for PUD prophylaxis Lovenox for DVT prophylaxis. Attestations Medical Necessity Statement*: Requires further hospitalization for management of non-ST elevation OH post PCI care Time Spent in Patient Care: Greater than 35 minutes Coding Level of Care Code Acute Logistics Engineering Manager for Chg Fwd Diagnoses Acute non-ST elevation myocardial infarction (NSTEMI) I21.4 Chest pain R07.9 Dyslipidemia E78.5 Benign essential HTN I10 Hypothyroidism (acquired) E03.9
[2022-03-28 16:59] LABS: Thyroid Stimulating Hormone 0.94 uIU/mL (0.27-4.20)
[2022-03-28 17:12] LABS: Iron 109 ug/dL (59-158); Percent Saturation 49.3 % (20-50); Total Iron Binding Capacity 221 mcg/dl; Unsaturated Iron Binding 112 ug/dL (112-347)
--- NOTE | 2022-03-28 19:02 | PC.NURSE ---
this nurse has reviewed and agrees with all documentation and medication administration by Janet duron student Nurse
[2022-03-28] MEDS: atorvastatin 40 mg Tablet PO (21:11)
[2022-03-29 00:08] VITALS: BP 123/61; PULSE 65; RESP 18; TEMP 37.1; O2SAT 94
[2022-03-29 04:00] VITALS: BP 132/62; PULSE 69; RESP 20; TEMP 36.6; O2SAT 94
[2022-03-29 06:14] VITALS: PULSE 57
[2022-03-29 06:27] LABS: Basophils # 0.1 10^3/uL (0.0-0.1); Basophils % 0.6 %; Eosinophils # 0.3 10^3/uL (0.0-0.8); Eosinophils % 4.3 %; Hematocrit 43.8 % (42.0-52.0); Hemoglobin 14.6 g/dL (11.7-16.6); Lymphocytes # 2.4 10^3/uL (0.8-4.8); Lymphocytes % 31.4 %; Mean Corpuscular HGB Conc 33.3 g/dL (30.0-36.0); Mean Corpuscular Hemoglobin 32.8 pg (28.0-34.0); Mean Corpuscular Volume 98.4 fl (80-94); Mean Platelet Volume 9.1 fL (7.4-10.4); Monocytes # 0.6 10^3/uL (0.2-0.9); Monocytes % 8.2 %; Neutrophils # 4.26 10^3/uL (1.8-7.7); Neutrophils % 55.2 %; Nucleated Red Blood Cells % 0 %; Platelet Count 283 10^3/cmm (130-400); Red Blood Count 4.45 10^6/uL (4.1-5.3); Red Cell Distribution Width 13.2 % (12.1-15.1); White Blood Count 7.7 10^3/uL (4.0-10.0)
[2022-03-29 06:39] LABS: Estmated Average Glucose 126
[2022-03-29 06:44] LABS: Alanine Aminotransferase 25 U/L (0-41); Albumin Level 3.6 g/dL (3.5-5.2); Alkaline Phosphatase 89 U/L (40-130); Anion Gap 13.8 (5-19); Aspartate Amino Transferase 33 U/L (0-40); Blood Urea Nitrogen 19 mg/dL (8-23); Calcium 9.1 mg/dL (8.5-10.5); Carbon Dioxide 26 mmol/L (22-29); Chloride 102 mmol/L (98-107); Chol HDL Ratio 3.45 mg/dL (1.0-5.00); Cholesterol 190 mg/dL (0-200); Globulin 3.2 g/dL (1.3-4.6); Glomerular Filtration Rate 83.4 mL/min (90-130); Glucose 107 mg/dL (65-115); HDL Cholesterol 55 mg/dL (60-100); LDL Cholesterol Calculated 121 mg/dL (50-129); Osmolality Calculated 289 mOsm/kg (285-295); Potassium 3.8 mmol/L (3.5-5.1); Sodium 138 mmol/L (136-145); Total Bilirubin 0.6 mg/dL (0.15-1.2); Total Protein 6.8 g/dL (6.6-8.7); Triglycerides 68 mg/dL (0-150); VLDL Cholestrol Calculation 14 mg/dL (0-30)
[2022-03-29 07:37] VITALS: BP 132/62; PULSE 63; RESP 16; TEMP 36.7; O2SAT 94
[2022-03-29] MEDS: metoprolol tartrate 50 mg Tablet 25 MG PO (08:32)
--- NOTE | 2022-03-29 08:32 | PM.PN ---
Subjective Subjective: Patient is doing well. Underwent successful revascularization of proximal RCA yesterday with GORGE x1. No chest pain overnight. Vitals/I&O/Wt Last Vital Signs Temp 98.0 F 03/29/22 07:37 Pulse 63 03/29/22 07:37 Resp 16 03/29/22 07:37 BP 132/62 03/29/22 07:37 Pulse Ox 94 03/29/22 07:37 O2 Del Method 03/29/22 07:37 03/28/22 03/29/22 03/29/22 22:59 06:59 14:59 Intake Total 150 / 270 200 / 470 Balance 150 / 270 200 / 470 Weight last 48 hrs Weight 225 lb Physical Exam Narrative: GENERAL: Patient is alert, awake and oriented x3. [] NECK: No jugular vein distension. [] HEENT: No cyanosis. No icterus. No pallor. [] HEART: Regular S1 and S2. No murmur, rub or gallop. [] LUNGS: Clear to auscultate bilaterally. [] ABDOMEN: Soft, nontender and nondistended. Positive bowel sounds. No guarding, rebound or tenderness. [] CENTRAL NERVOUS SYSTEM: Grossly nonfocal. [] EXTREMITIES: Lower extremities with no edema bilaterally. Pulses palpable in the lower extremities, both dorsalis pedis and posterior tibial. [] Data : 03/29/22 05:19 03/29/22 05:19 A&P Assessment and plan (1) Acute non-ST elevation myocardial infarction (NSTEMI): (2) Benign essential HTN: (3) Dyslipidemia: Plan Coronary angiogram revealed critical 99% proximal RCA stenosis. He underwent successful revascularization with GORGE x1. Patient is stable stable. Continue aspirin and Plavix. Will continue with atorvastatin. Thank you for involving us with care of this patient. Patient stable to be discharged from cardiology standpoint. Please call with questions Attestations Medical Necessity Statement*: Care expected to cross 2 midnights. Coding Level of Care Code Acute Vertical Mill Operator for Aga Wahl Diagnoses Acute non-ST elevation myocardial infarction (NSTEMI) I21.4 Benign essential HTN I10 Dyslipidemia E78.5
[2022-03-29] MEDS: levothyroxine 88 mcg Tablet PO (08:33)
[2022-03-29] MEDS: aspirin 81 mg EC Tablet PO (08:33)
[2022-03-29] MEDS: pantoprazole DR 40 mg Tablet PO (08:33)
[2022-03-29] MEDS: clopidogrel 75 mg Tablet PO (08:34)
[2022-03-29] MEDS: ALPRAZolam 0.5 mg Tablet PO (08:38)
--- NOTE | 2022-03-29 09:54 | P.DS_ITS ---
Discharge Providers Date of Admission: 03/28/22 08:32 Date of Discharge: March 29, 2022 Attending Provider at Admission: Eder Galo Attending Provider at Discharge: John Hammond MD Consults: Cardiology: Dr. Quintana Primary Care Provider: Mavis Calderon DO Diagnoses at Discharge Discharge Diagnosis (1) Acute non-ST elevation myocardial infarction (NSTEMI): Status: Acute (2) Chest pain: Status: Acute (3) Dyslipidemia: Status: Acute (4) Benign essential HTN: Status: Chronic (5) Hypothyroidism (acquired): Status: Chronic Reason for Visit Reason for Visit: Chest Pain Hospital Course Hospital Course Pleasant 71-year-old gentleman presents due to about 3-day history of recurrent pain inside his chest, radiating to his back, neck, arms, abdomen.? Pain is bothersome.? Not related to activity.? Sometimes wakes him up from sleep.? 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 However, he has also been having quite significant sweats, denies fever.? Denies cough or shortness of breath.? Did not figure that acid reflux could be causing this.? He denies known history of heart disease in himself.? No prior stents.? He is a former smoker, quit 15-20 years ago, but does have history of HTN, HLD.? His father of massive heart attack at age 79.? In ER noted sinus bradycardia, nonspecific changes on EKG.? First troponin elevated at 101, second troponin higher at 131.9. Patient was admitted to hospital for further evaluation and management of non-ST elevation ID. Cardiology was consulted and he underwent cardiac angiogram and PCI with GORGE to RCA on 03/28. His hospitalization and procedure was unremarkable. His cardiac medications were further adjusted. Is been discharged in medically stable condition with advised to follow-up with [facility] nurse practitioner within next 1 week, Dr. Quintana within next 1 month and his primary care provider within next 10 days. Physical Exam Const: COMMON NORMALS: patient oriented x3 and alert GENERAL APPEARANCE: cooperative ORIENTATION/CONSCIOUSNESS: Yes awake HENMT: COMMON NORMALS: oropharynx normal Neck/C-Spine: COMMON NORMALS: no JVD Resp: COMMON NORMALS: normal respiratory effort and clear to auscultation bilaterally AUSCULTATION: clear to auscultation bilaterally Cardio: COMMON NORMALS: no JVD, regular rhythm, S1 normal heart sound present, S2 normal heart sound present and No murmurs present (Cardio) RHYTHM: regular rhythm HEART SOUNDS: S1 normal heart sound present and S2 normal heart sound present GI: COMMON NORMALS: Normal to inspection, nondistended, normoactive bowel sounds present, Soft to palpation and non-tender PALPATION: Yes Soft to palpation Extremity: COMMON NORMALS: no joint enlargement and no pedal edema Neuro: COMMON NORMALS: patient oriented x3 and moves all extremities SENSORIUM/ORIENTATION: Yes alert Skin: COMMON NORMALS: no rashes or lesions noted GENERAL SKIN EXAM: no rashes or lesions noted Discharge Data Studies Completed and Pending Completed Studies During Hospitalization Category Date Time Status CT abdomen pelvis wo con [id number] Stat Cat Scan 03/27/22 17:15 Completed CTA thoracic [CT angio chest [id number]] Stat Cat Scan 03/27/22 17:15 Completed STUDENT FINANCE SPECIALIST request for service Routine Exams 03/28/22 06:08 Completed XR chest 1V portable [id number] Stat Exams 03/27/22 13:32 Completed CV. echo complete* [id number] Routine Ultrasound 03/27/22 18:12 Completed Pending at discharge Category Date Time Status Complete Blood Count w/Auto AM LABS Lab 03/30/22 04:00 Ordered Comprehensive Metabolic Panel AM LABS Lab 03/30/22 04:00 Ordered Radiology Impressions Chest X-Ray 03/27/22 13:32 IMPRESSION: No acute findings. Abdomen/Pelvis CT 03/27/22 17:15 IMPRESSION: No acute findings. Chest CTA 03/27/22 17:15 IMPRESSION: 1. Near complete resolution of superior segment left lower lobe pneumonia since the previous exam. 2. 1.5 cm pulmonary nodule superior segment left lower lobe consistent with scar from previous pneumonia versus neoplasm such as scar carcinoma/lung carcinoma. Followup as discussed below. 3. Mild calcified coronary artery disease. For both low risk and high risk patients, consider CT Chest at 3 months, PET/CT, or biopsy. (Reference: Farhat) References: Farhat Lebron et al. Guidelines for Management of Incidental Pulmonary Nodules Detected on CT Images: From the Fleischner Society 2017. Radiology. 2017;284(1):228-243. Echocardiogram CONCLUSIONS ?Left ventricle is normal in size. ?LV systolic function is normal with EF of 60-65% ?Grade 1 diastolic dysfunction ?Mild tricuspid regurgitation ?Compared to prior echocardiogram from 2013, no significant ?changes are seen. ?Davonte Quintana MD ?(Electronically Signed) ?Final Date:? ? ? 28 March 2022 ? 08:39 Laboratory Results WBC 7.7 10^3/uL (4.0-10.0) 03/29/22 05:19 RBC 4.45 10^6/uL (4.1-5.3) 03/29/22 05:19 Hgb 14.6 g/dL (11.7-16.6) 03/29/22 05:19 Hct 43.8 % (42.0-52.0) 03/29/22 05:19 MCV 98.4 fl (80-94) H 03/29/22 05:19 MCH 32.8 pg (28.0-34.0) 03/29/22 05:19 MCHC 33.3 g/dL (30.0-36.0) 03/29/22 05:19 RDW 13.2 % (12.1-15.1) 03/29/22 05:19 Plt Count 283 10^3/cmm (130-400) 03/29/22 05:19 MPV 9.1 fL (7.4-10.4) 03/29/22 05:19 Neut % (Auto) 55.2 % 03/29/22 05:19 Lymph % (Auto) 31.4 % 03/29/22 05:19 [place] % (Auto) 8.2 % 03/29/22 05:19 Eos % (Auto) 4.3 % 03/29/22 05:19 Baso % (Auto) 0.6 % 03/29/22 05:19 Neut # (Auto) 4.26 10^3/uL (1.8-7.7) 03/29/22 05:19 Lymph # (Auto) 2.4 10^3/uL (0.8-4.8) 03/29/22 05:19 [place] # (Auto) 0.6 10^3/uL (0.2-0.9) 03/29/22 05:19 Eos # (Auto) 0.3 10^3/uL (0.0-0.8) 03/29/22 05:19 Baso # (Auto) 0.1 10^3/uL (0.0-0.1) 03/29/22 05:19 Nucleated RBC % (auto) 0 % 03/29/22 05:19 Nucleated RBCs # 0.0 /100WBC 03/29/22 05:19 Sodium 138 mmol/L (136-145) 03/29/22 05:19 Potassium 3.8 mmol/L (3.5-5.1) 03/29/22 05:19 Chloride 102 mmol/L (98-107) 03/29/22 05:19 Carbon Dioxide 26 mmol/L (22-29) 03/29/22 05:19 Anion Gap 13.8 (5-19) 03/29/22 05:19 BUN 19 mg/dL (8-23) 03/29/22 05:19 Creatinine 0.9 mg/dL (0.7-1.2) 03/29/22 05:19 GFR Calculation 83.4 mL/min (90-130) L 03/29/22 05:19 Glucose 107 mg/dL (65-115) 03/29/22 05:19 Estimat Average Glucose 126 03/29/22 05:19 Hemoglobin A1c 6.0 % (4.0-6.0) 03/29/22 05:19 Calculated Osmolality 289 mOsm/kg (285-295) 03/29/22 05:19 Calcium 9.1 mg/dL (8.5-10.5) 03/29/22 05:19 Iron 109 ug/dL (59-158) 03/28/22 16:01 TIBC 221 mcg/dl 03/28/22 16:01 % Saturation 49.3 % (20-50) 03/28/22 16:01 Unsat Iron Binding 112 ug/dL (112-347) 03/28/22 16:01 Total Bilirubin 0.6 mg/dL (0.15-1.2) 03/29/22 05:19 AST 33 U/L (0-40) 03/29/22 05:19 ALT 25 U/L (0-41) 03/29/22 05:19 Alkaline Phosphatase 89 U/L (40-130) 03/29/22 05:19 Troponin T Baseline 101 ng/L (0-15) H* 03/27/22 14:00 Troponin T 120 Minute 131.9 ng/L (0-15) H 03/27/22 15:53 Delta Troponin T 30.9 ABS# (0-10) H* 03/27/22 15:53 Troponin T Hi Sens 6Hr 321.6 ng/L (0-15) H 03/27/22 20:10 Troponin T Hi Sens 6Hr Delta 220.6 ng/L (0-12) H* 03/27/22 20:10 Total Protein 6.8 g/dL (6.6-8.7) 03/29/22 05:19 Albumin 3.6 g/dL (3.5-5.2) 03/29/22 05:19 Globulin 3.2 g/dL (1.3-4.6) 03/29/22 05:19 Triglycerides 68 mg/dL (0-150) 03/29/22 05:19 Cholesterol 190 mg/dL (0-200) 03/29/22 05:19 LDL Cholesterol, Calc 121 mg/dL (50-129) 03/29/22 05:19 Total VLDL Cholesterol 14 mg/dL (0-30) 03/29/22 05:19 HDL Cholesterol 55 mg/dL (60-100) L 03/29/22 05:19 Cholesterol/HDL Ratio 3.45 mg/dL (1.0-5.00) 03/29/22 05:19 TSH 0.94 uIU/mL (0.27-4.20) 03/28/22 16:01 Procedures Performed labor specialist Procedure Diagnostic Cath Status: ? ? Urgent Diagnostic Findings ? * Left Main has no significant disease. ? * Circumflex has mild luminal irregularities. ? * Proximal Right Coronary Artery: has 99% stenosis with thrombus seen, REE: 3 flow. ? * Proximal Left Anterior Descending to Mid Left Anterior Descending: minimal 30% stenosis, REE: 3 flow. ? * Coronary angiography shows right dominance. PCI Status: ? ? Urgent PCI Indication: ? ? NSTE - ACS Interventional Findings ? * Procedure detail: We engaged RCA with JR4 guide catheter.? A 0.014 run- through guidewire was used to cross proximal severe stenosis and was put in distal vessel.? IV heparin was administered to maintain ACT above 250 S. We predilated the stenosis with 2.5 x 12 mm semicompliant balloon.? This was followed by placement of 3.0 x 12 mm resolute [place] drug-eluting stent. At this time final angiogram was performed that showed excellent stent expansion, no residual stenosis and REE-3 flow. Guidewire and guide catheter were removed. Patient left the [employer] in a stable condition. ? * Proximal Right Coronary Artery:? 99% stenosis treated with a AB TREK 2.50X12 RX BALLOON, and MDT R ALLEN 3.0X12 GORGE. 0% residual stenosis, REE: 3 flow. Conclusions ? 1. Critical proximal RCA ? 2. stenosis with overlying thrombus. Status post successful revascularization with GORGE x1. ? 3. Proximal Right Coronary Artery was treated with a Balloon, and Drug Eluting Stent. Vitals Last Vital Signs Temp 98.0 F 03/29/22 07:37 Pulse 63 03/29/22 07:37 Resp 16 03/29/22 07:37 BP 132/62 03/29/22 07:37 Pulse Ox 94 03/29/22 07:37 O2 Del Method 03/29/22 07:37 Discharge Plan Discharge Patient Disposition: Home Condition: Stable Prescriptions: New atorvastatin 40 mg Tablet 40 mg PO BEDTIME Qty: 30 0RF clopidogrel 75 mg Tablet 75 mg PO DAILY Qty: 30 0RF aspirin 81 mg Tablet,Delayed Release (Dr/Ec) 81 mg PO DAILY Qty: 30 0RF pantoprazole 40 mg Tablet,Delayed Release (Dr/Ec) 40 mg PO BID Qty: 60 0RF metoprolol tartrate 50 mg Tablet 25 mg PO BID@0900,2100 30 Days Qty: 30 0RF lisinopril 5 mg tablet 5 mg PO DAILY Qty: 30 0RF Continued alprazolam [Xanax] 0.5 mg tablet 0.5 mg PO BID PRN (Reason: anxiety) Qty: 60 5RF levothyroxine [Euthyrox] 88 mcg tablet 88 mcg PO DAILY 90 Days Qty: 90 1RF Discontinued metoprolol tartrate 50 mg tablet See Rx Instructions .ROUTE .COMPLEX Qty: 180 0RF Dose Instruction: Take 1 tablet by mouth twice daily for 90 days Rx Instructions: Take 1 tablet by mouth twice daily for 90 days Discharge Orders: Discharge Order (Routine); Ordered 10/18/22 Ordered By: John Hammond Referrals: Mavis Calderon DO [Primary Care Provider] - 04/05/22 10:15 am Delicia Azul FNP [Nurse Practitioner] - 04/05/22 2:00 pm Discharge Diet: Cardiac Discharge Activity: Resume usual activity and Increase activity as tolerated Patient Instructions: Opioid Safety Discharge Attestations Time Spent in Discharge Care*: greater than 30 min Specific Discharge Activities: educating patient, discussing with pcp/other providers, discussing with caser up/social workers/dc planners, documenting/other paperwork and evaluating patient/reviewing data Status at Discharge: Cognitive status at discharge: cognitively intact , Behavioral status at discharge: cooperative , Functional status at discharge: independent ambulation , Overall status at discharge: patient is back to baseline Quality Metrics Clinical Quality Measures [ No reported AMI, CVA or VTE this stay] Coding Level of Care Code Acute Chg FW DC note Exam Comprehensive Diagnoses Acute non-ST elevation myocardial infarction (NSTEMI) I21.4 Chest pain R07.9 Dyslipidemia E78.5 Benign essential HTN I10 Hypothyroidism (acquired) E03.9
[2022-03-29 10:41] VITALS: BP 132/62; PULSE 63; RESP 16; TEMP 36.7; O2SAT 94
--- NOTE | 2022-03-29 10:53 | PC.NURSE ---
Educatino about new medications and dosage change given to patient prior to discharge. Information about upcoming appointments also given to patient. Patient instructed not to lift or push more than 5lbs on right wrist. Patient verbalized understanding on all education. IV removed and patient was wheeled to the front entrance at 1052am where his was waiting in car.
== END 2022-03-29 10:56 | disposition home or self-care (01) | DRG 247 ==
LOC: ER 17:11 → MEDSURG 17:39
PROVIDERS: Emergency Medicine; Internal Medicine; Admitting Provider Internal Medicine; Emergency Provider Emergency Medicine; PCP Family Medicine; Visit Provider Student in an Organized Health Care Education/Training Program
PROC: B2111ZZ Fluoroscopy of Multiple Coronary Arteries using Low Osmolar Contrast (ICD-10-PCS; principal; 2022-03-28 07:15)
PROC: B2111ZZ Fluoroscopy of Multiple Coronary Arteries using Low Osmolar Contrast (ICD-10-PCS; 2022-03-28 07:15)
DX: I21.4 Non-ST elevation (NSTEMI) myocardial infarction (principal); K90.41 Non-celiac gluten sensitivity; I25.119 Atherosclerotic heart disease of native coronary artery with unspecified angina pectoris; I10 Essential (primary) hypertension; E78.5 Hyperlipidemia, unspecified; E03.9 Hypothyroidism, unspecified; K21.00 Gastro-esophageal reflux disease with esophagitis, without bleeding; F43.12 Post-traumatic stress disorder, chronic; F41.1 Generalized anxiety disorder; E66.9 Obesity, unspecified; Z68.30 Body mass index [BMI] 30.0-30.9, adult; Z82.49 Family history of ischemic heart disease and other diseases of the circulatory system; Z87.891 Personal history of nicotine dependence; Z86.010 Personal history of colon polyps
CPT/HCPCS: 36415; 71045; 71275; 74176; 80053; 80061; 83036; 83540; 83550; 84443; 84484; 85025; 85347; 93005; 93306; 93454; 96360; 96372; 96374; 99152; 99153; 99285; C1725; C1769; C1874; C1887; C1894; C9600; G0378; J1644; J1650; J2250; J2270; J3010; J3490; J7030; Q0163; Q9967

== ENCOUNTER → 2022-04-05 15:22 | Outpatient (BNVA) | payer MEDICARE, SELFPAY | PROVIDERS: PCP Family Medicine; Visit Provider Nurse Practitioner Family | DX: I25.2 Old myocardial infarction (principal); Z87.891 Personal history of nicotine dependence | CPT/HCPCS: 36415; 80048; 99213; 99214 ==

== ENCOUNTER 2022-04-12 20:50 | Emergency (ER) | payer MEDICARE, SELFPAY ==
[2022-04-12 20:54] VITALS: BP 179/91; PULSE 74; RESP 16; TEMP 36.8; O2SAT 98
--- NOTE | 2022-04-12 21:57 | XRR_ITS ---
PROCEDURE INFORMATION: Exam: XR Chest Exam date and time: 04/12/2022 10:24 PM Age: 71 years old Clinical indication: Sternal or substernal pain; Prior surgery; Surgery date: <1 month; Surgery type: Stent; Additional info: Cp TECHNIQUE: Imaging protocol: Radiologic exam of the chest. Views: 1 view. COMPARISON: CR (CHEST, ) 03/27/2022 2:00 PM FINDINGS: Lungs: Left mid lung 13 mm nodule, please refer to recent CT scan from 03/27/2022 for further discussion and recommendations. Pleural spaces: Unremarkable. No pleural effusion. No pneumothorax. Heart/Mediastinum: Unremarkable. No cardiomegaly. Bones/joints: Unremarkable. XR/XR chest 1V portable [id number] IMPRESSION: 1. No acute findings. 2. Left mid lung 13 mm nodule, please refer to recent CT scan from 03/27/2022 for further discussion and recommendations.
[2022-04-12 22:04] LABS: Basophils # 0.1 10^3/uL (0.0-0.1); Basophils % 0.8 %; Eosinophils # 0.4 10^3/uL (0.0-0.8); Eosinophils % 4.7 %; Hematocrit 46.1 % (42.0-52.0); Hemoglobin 15.3 g/dL (11.7-16.6); Lymphocytes # 1.8 10^3/uL (0.8-4.8); Lymphocytes % 19.1 %; Mean Corpuscular HGB Conc 33.2 g/dL (30.0-36.0); Mean Corpuscular Hemoglobin 32.9 pg (28.0-34.0); Mean Corpuscular Volume 99.1 fl (80-94); Mean Platelet Volume 8.6 fL (7.4-10.4); Monocytes # 0.6 10^3/uL (0.2-0.9); Monocytes % 6.1 %; Nucleated Red Blood Cells % 0 %; Platelet Count 350 10^3/cmm (130-400); Red Blood Count 4.65 10^6/uL (4.1-5.3); Red Cell Distribution Width 12.8 % (12.1-15.1); White Blood Count 9.3 10^3/uL (4.0-10.0)
[2022-04-12 22:25] LABS: INR 0.91 (0.8-1.2); Partial Thromboplastin Time 30.8 SECONDS (23.9-36.7)
[2022-04-12 22:41] LABS: Troponin(5th) Baseline 8 ng/L (0-15)
[2022-04-12 22:45] VITALS: BP 171/88; PULSE 65; RESP 16; O2SAT 99
[2022-04-12 22:51] LABS: Alanine Aminotransferase 18 U/L (0-41); Albumin Level 4.7 g/dL (3.5-5.2); Alkaline Phosphatase 124 U/L (40-130); Anion Gap 16.5 (5-19); Aspartate Amino Transferase 19 U/L (0-40); Blood Urea Nitrogen 11 mg/dL (8-23); Calcium 9.9 mg/dL (8.5-10.5); Carbon Dioxide 28 mmol/L (22-29); Chloride 101 mmol/L (98-107); Creatinine Clr Calc Pharmacy 106.1949; Globulin 2.8 g/dL (1.3-4.6); Glomerular Filtration Rate 95.6 mL/min (90-130); Glucose 135 mg/dL (65-115); NT Pro B Type Natriuretic Pept 190 pg/mL (0-125); Osmolality Calculated 293 mOsm/kg (285-295); Potassium 4.5 mmol/L (3.5-5.1); Sodium 141 mmol/L (136-145); Total Bilirubin 0.4 mg/dL (0.15-1.2); Total Protein 7.5 g/dL (6.6-8.7)
--- NOTE | 2022-04-12 22:51 | ED_ITS ---
HPI - Chest Pain General: Chief Complaint: Chest Pain Stated Complaint: high B/P Time Seen by Provider: 04/12/22 21:57 Source: patient Mode of arrival: ambulatory Limitations: no limitations History of Present Illness: 71-year-old male who states that he has been having high blood pressure over the last 2 weeks he has been having some burning sensation in his abdomen and chest for 2 weeks as well he had a stent placed 2 weeks ago he states pain is currently 1 out of 10 denies any severe pain denies any diaphoresis denies any worsening improving factors denies any nausea. Associated symptoms: Deny abdominal pain, dyspnea, fever(s), nausea or vomiting Review of Systems Const: Denies: fever(s), chills, body aches or change in appetite Eyes: Denies: blurry vision or eye discomfort ENMT: Denies: throat pain or dental pain Card: Reports: chest pain Resp: Denies: dyspnea GI: Denies: abdominal pain, nausea, vomiting or diarrhea : Denies: dysuria Musc: Denies: neck pain or back pain Skin/Breast: Denies: rash Neuro: Denies: headache(s) Psych: Denies: depression Elian/Lymph: Denies: easy bruising All/Imm: Denies: urticaria PFSH ED PFSH: Medical History Benign essential HTN BPH with obstruction/lower urinary tract symptoms Chronic post-traumatic stress disorder Generalized anxiety disorder Hypothyroidism (acquired) Major depressive disorder, recurrent, in full remission Microscopic hematuria Urinary retention with incomplete bladder emptying Surgical History Status post hemorrhoidectomy HEMORRHOID BANDING Status post right knee surgery Family History Mother , AT AGE 85-COMPLICATIONS OF DIABETES Diabetes Father , AT AGE 79-SC No problems noted. Social History Smoking and tobacco status: former smoker Alcohol intake: never Physical Exam Const: COMMON NORMALS: no acute distress, patient oriented x3 and healthy appearing HENMT: COMMON NORMALS: normocephalic and atraumatic HEAD & SCALP: normocephalic and atraumatic Eye: COMMON NORMALS: Equal, round and reactive pupils present and EOMs intact bilaterally PUPIL: Yes Equal, round and reactive pupils present Neck/C-Spine: COMMON NORMALS: full ROM and supple Chest: COMMONS NORMALS: normal inspection of the chest and normal palpation of entire chest wall Resp: COMMON NORMALS: normal respiratory effort, No retractions, No use of accessory muscles and clear to auscultation bilaterally AUSCULTATION: clear to auscultation bilaterally Cardio: COMMON NORMALS: regular rate, regular rhythm and No murmurs present (Cardio) RATE: regular rate RHYTHM: regular rhythm GI: COMMON NORMALS: Normal to inspection, nondistended, normoactive bowel sounds present, Soft to palpation, non-tender and no masses PALPATION: Yes Soft to palpation Extremity: COMMON NORMALS: normal to inspection and full ROM Neuro: COMMON NORMALS: patient oriented x3, moves all extremities and no focal motor deficits Psych: COMMON NORMALS: mental status grossly normal, Normal thought process present and cooperative THOUGHT PROCESS: Normal thought process present Skin: COMMON NORMALS: no rashes or lesions noted and no wounds GENERAL SKIN EXAM: no rashes or lesions noted Course Vital Signs: Vital signs: Vital Signs Temperature 98.3 F 04/12/22 20:54 Pulse Rate 81 04/13/22 00:23 Respiratory Rate 18 04/13/22 00:23 Blood Pressure 173/77 04/13/22 00:23 Pulse Oximetry 98 04/13/22 00:23 Oxygen Delivery Me thod 04/12/22 20:54 MDM - Chest Pain Medical Decision Making Patient presents here with high blood pressure he did have his metoprolol recently cut in half informed him I will increase his lisinopril he is to talk to his day care home provider tomorrow to see if there is any other adjustments they want to be made his heart enzymes here are normal and his chest pain is atypical he stable for discharge he is to follow-up with PCP and return if worsening. Lab Data : 04/12/22 21:53 04/12/22 21:53 Radiology Impressions Chest X-Ray 04/12/22 21:57 IMPRESSION: 1. No acute findings. 2. Left mid lung 13 mm nodule, please refer to recent CT scan from 03/27/2022 for further discussion and recommendations. Laboratory Results WBC 9.3 10^3/uL (4.0-10.0) 04/12/22 21:53 RBC 4.65 10^6/uL (4.1-5.3) 04/12/22 21:53 Hgb 15.3 g/dL (11.7-16.6) 04/12/22 21:53 Hct 46.1 % (42.0-52.0) 04/12/22 21:53 MCV 99.1 fl (80-94) H 04/12/22 21:53 MCH 32.9 pg (28.0-34.0) 04/12/22 21:53 MCHC 33.2 g/dL (30.0-36.0) 04/12/22 21:53 RDW 12.8 % (12.1-15.1) 04/12/22 21:53 Plt Count 350 10^3/cmm (130-400) 04/12/22 21:53 MPV 8.6 fL (7.4-10.4) 04/12/22 21:53 Neut % (Auto) 69.0 % 04/12/22 21:53 Lymph % (Auto) 19.1 % 04/12/22 21:53 [place] % (Auto) 6.1 % 04/12/22 21:53 Eos % (Auto) 4.7 % 04/12/22 21:53 Baso % (Auto) 0.8 % 04/12/22 21:53 Neut # (Auto) 6.40 10^3/uL (1.8-7.7) 04/12/22 21:53 Lymph # (Auto) 1.8 10^3/uL (0.8-4.8) 04/12/22 21:53 [place] # (Auto) 0.6 10^3/uL (0.2-0.9) 04/12/22 21:53 Eos # (Auto) 0.4 10^3/uL (0.0-0.8) 04/12/22 21:53 Baso # (Auto) 0.1 10^3/uL (0.0-0.1) 04/12/22 21:53 Nucleated RBC % (auto) 0 % 04/12/22 21:53 Nucleated RBCs # 0.0 /100WBC 04/12/22 21:53 PT 12.60 SECONDS (12.1-14.9) 04/12/22 21:53 INR 0.91 (0.8-1.2) 04/12/22 21:53 APTT 30.8 SECONDS (23.9-36.7) 04/12/22 21:53 Sodium 141 mmol/L (136-145) 04/12/22 21:53 Potassium 4.5 mmol/L (3.5-5.1) 04/12/22 21:53 Chloride 101 mmol/L (98-107) 04/12/22 21:53 Carbon Dioxide 28 mmol/L (22-29) 04/12/22 21:53 Anion Gap 16.5 (5-19) 04/12/22 21:53 BUN 11 mg/dL (8-23) 04/12/22 21:53 Creatinine 0.8 mg/dL (0.7-1.2) 04/12/22 21:53 GFR Calculation 95.6 mL/min (90-130) 04/12/22 21:53 Glucose 135 mg/dL (65-115) H 04/12/22 21:53 Calculated Osmolality 293 mOsm/kg (285-295) 04/12/22 21:53 Calcium 9.9 mg/dL (8.5-10.5) 04/12/22 21:53 Total Bilirubin 0.4 mg/dL (0.15-1.2) 04/12/22 21:53 AST 19 U/L (0-40) 04/12/22 21:53 ALT 18 U/L (0-41) 04/12/22 21:53 Alkaline Phosphatase 124 U/L (40-130) 04/12/22 21:53 Troponin T Baseline 8 ng/L (0-15) 04/12/22 21:53 Troponin T 120 Minute 8.07 ng/L (0-15) 04/12/22 23:30 NT-Pro-B Natriuret Pep 190 pg/mL (0-125) H 04/12/22 21:53 Total Protein 7.5 g/dL (6.6-8.7) 04/12/22 21:53 Albumin 4.7 g/dL (3.5-5.2) 04/12/22 21:53 Globulin 2.8 g/dL (1.3-4.6) 04/12/22 21:53 Discharge Plan Discharge Patient Disposition: Home Clinical Impression: Chest pain, Benign essential HTN Condition: Stable Prescriptions: New lisinopril 10 mg tablet 10 mg PO DAILY Qty: 60 0RF Discontinued lisinopril 5 mg tablet 5 mg PO DAILY Qty: 90 1RF No Action pantoprazole 40 mg tablet,delayed release (DR/EC) 40 mg PO DAILY Qty: 60 0RF alprazolam [Xanax] 0.5 mg tablet 0.5 mg PO BID PRN (Reason: anxiety) Qty: 60 5RF levothyroxine [Euthyrox] 88 mcg tablet 88 mcg PO DAILY 90 Days Qty: 90 1RF aspirin 81 mg Tablet,Delayed Release (Dr/Ec) 81 mg PO DAILY Qty: 30 0RF metoprolol tartrate 50 mg Tablet 25 mg PO BID@0900,2100 30 Days Qty: 30 0RF atorvastatin 40 mg tablet 40 mg PO BEDTIME Qty: 90 1RF clopidogrel 75 mg tablet 75 mg PO DAILY Qty: 90 1RF Discharge Orders: Discharge ED (Routine); Ordered 04/13/22 Ordered By: Travis Landers Referrals: Mavis Calderon DO [Primary Care Provider] - 1-3 days Discharge Diet: Advance as tolerated Discharge Activity: Resume usual activity Coding Level of Care Code ED Medical Technician Assistant for Aga Fwd Exam Comprehensive
[2022-04-12 23:05] VITALS: BP 154/77; PULSE 61; RESP 16; O2SAT 99
[2022-04-12] MEDS: hyDRALAzine 20 mg/mL INJ 1 mL 10 MG IVP (23:05)
--- NOTE | 2022-04-12 23:05 | ECG_ITS ---
[facility] Test Date: 2022-04-12 Pat Name: Esvin Cardenas Department: Room: Gender: Male [employer] Baler: : 1950 Requested By: David Arevalo Order Number: [id number] Adam MD: Idania Naik M.D. Measurements Intervals Kathleen Rate: 76 P: 51 NC: 177 QRS: 6 QRSD: 103 T: -7 QT: 350 QTc: 395 Interpretive Statements SINUS RHYTHM Compared to ECG 03/27/2022 15:42:44 Sinus bradycardia no longer present Electronically Signed On 04-13-2022 12:14:14 CDT by Idania Naik M.D. [id number]
[2022-04-12 23:25] VITALS: BP 163/102; PULSE 75; RESP 16; O2SAT 99
[2022-04-12 23:36] VITALS: BP 188/91; PULSE 82; RESP 16; O2SAT 97
[2022-04-12 23:50] VITALS: BP 181/110; PULSE 72; RESP 16; O2SAT 99
[2022-04-12 23:57] LABS: Troponin 5 2HR 8.07 ng/L (0-15)
[2022-04-13] VITALS: BP 180/99; PULSE 79; RESP 16; O2SAT 98
[2022-04-13] MEDS: hyDRALAzine 20 mg/mL INJ 1 mL 10 MG IVP
[2022-04-13 00:23] VITALS: BP 173/77; PULSE 81; RESP 18; O2SAT 98
[2022-04-13] MEDS: lidocaine 2% viscous 15 ML, aluminum-mag hydrox-simethicon 30 ML, sucralfate oral liq 1 GM PO (00:46)
[2022-04-13 00:48] LABS: Troponin 5 2HR Delta 0.07 ABS# (0-10)
[2022-04-13 00:58] VITALS: BP 178/90; PULSE 80; RESP 18; O2SAT 96
== END 2022-04-13 00:59 | disposition home or self-care (01) ==
PROVIDERS: Nurse Practitioner Family; Emergency Provider Emergency Medicine; PCP Family Medicine
DX: R07.9 Chest pain, unspecified (principal); I10 Essential (primary) hypertension; Z79.82 Long term (current) use of aspirin; Z79.02 Long term (current) use of antithrombotics/antiplatelets; Z87.891 Personal history of nicotine dependence
CPT/HCPCS: 36415; 71045; 80053; 83880; 84484; 85025; 85610; 85730; 93005; 96374; 96375; 99285; J0360

== ENCOUNTER 2022-05-23 18:58 | Emergency (ER) | payer MEDICARE, SELFPAY ==
[2022-05-23 19:37] VITALS: BP 177/83; PULSE 68; RESP 18; TEMP 36.8; O2SAT 99; BMI 30.2
--- NOTE | 2022-05-23 19:57 | USR_ITS ---
PROCEDURE INFORMATION: Exam: US Duplex Left Lower Extremity Veins, Limited Exam date and time: 05/23/2022 8:34 PM Age: 71 years old Clinical indication: Pain and injury or trauma; Other: Patient is taking plavix, 10 days S/P cardiac stenting. Also 10 days ago, he slammed his left calf in truck door. No history of dvt per patient. C/O pain and swelling at area of trauma, medial left calf. Blunt trauma (contusions or hematomas); Lower extremity, lower leg level; Other superficial vein; Leg, lower; Injury date: May 11, 2022; Additional info: Leg swelling TECHNIQUE: Imaging protocol: Real-time Duplex ultrasound of the Left Lower Extremity with 2-D duckworth scale, color Doppler flow and spectral waveform analysis with image documentation. Limited exam focused on the left lower extremity veins. COMPARISON: CT abdomen pelvis wo con [id number] 03/27/2022 5:56 PM FINDINGS: Left deep veins: Unremarkable. The common femoral, femoral, proximal profunda femoral and popliteal veins are patent without thrombus. Normal Doppler waveforms. Normal compressibility and/or augmentation response. Left superficial veins: Unremarkable. Saphenofemoral junction is patent without thrombus. Soft tissues: At area of discomfort at medial lower leg, there is a somewhat complicated appearing fluid collection measuring up to 4.7 x 3.0 x 1.0 cm that is suspected to represent hematoma. US/[place] [id number] IMPRESSION: No evidence of deep vein thrombosis. Fluid collection suspected to represent hematoma at medial lower leg.
--- NOTE | 2022-05-23 20:41 | W.ED.EXTPRO ---
HPI - Extremity Problem General: Chief complaint: Extremity Problem,Nontraumatic Stated complaint: left leg swelling , possible DVT Time Seen by Provider: 05/23/22 20:37 Source: patient Mode of arrival: ambulatory Limitations: no limitations History of Present Illness: 71-year-old male states he had a screen door hit him 10 days ago states he had a bruise along with swelling to his left lower leg states he saw his nurse practitioner today who sent him up here for an emergent ultrasound as she was concerned about a DVT. He states he does have pain in that leg is able ambulate he is on Plavix. Associated symptoms: Deny chest pain, fever(s) or rash Review of Systems Const: Denies: fever(s), chills, body aches or change in appetite Eyes: Denies: blurry vision or eye discomfort ENMT: Denies: throat pain or dental pain Card: Denies: chest pain Resp: Denies: dyspnea GI: Denies: abdominal pain, nausea, vomiting or diarrhea : Denies: dysuria Musc: Reports: extremity pain and extremity swelling; Denies: neck pain or back pain Skin/Breast: Denies: rash Neuro: Denies: headache(s) Psych: Denies: depression Elian/Lymph: Denies: easy bruising All/Imm: Denies: urticaria PFSH ED PFSH: Medical History Benign essential HTN BPH with obstruction/lower urinary tract symptoms Chronic post-traumatic stress disorder Generalized anxiety disorder Hypothyroidism (acquired) Major depressive disorder, recurrent, in full remission Microscopic hematuria Urinary retention with incomplete bladder emptying Surgical History Status post hemorrhoidectomy HEMORRHOID BANDING Status post right knee surgery Family History Mother , AT AGE 85-COMPLICATIONS OF DIABETES Diabetes Father , AT AGE 79-[place] No problems noted. Social History Smoking and tobacco status: former smoker Alcohol intake: never Physical Exam Const: COMMON NORMALS: no acute distress, patient oriented x3 and healthy appearing HENMT: COMMON NORMALS: normocephalic and atraumatic HEAD & SCALP: normocephalic and atraumatic Eye: COMMON NORMALS: Equal, round and reactive pupils present and EOMs intact bilaterally PUPIL: Yes Equal, round and reactive pupils present Neck/C-Spine: COMMON NORMALS: full ROM and supple Chest: COMMONS NORMALS: normal inspection of the chest and normal palpation of entire chest wall Resp: COMMON NORMALS: normal respiratory effort, No retractions, No use of accessory muscles and clear to auscultation bilaterally AUSCULTATION: clear to auscultation bilaterally Cardio: COMMON NORMALS: regular rate, regular rhythm and No murmurs present (Cardio) RATE: regular rate RHYTHM: regular rhythm GI: COMMON NORMALS: Normal to inspection, nondistended, normoactive bowel sounds present, Soft to palpation, non-tender and no masses PALPATION: Yes Soft to palpation Extremity: NARRATIVE EXTREMITY EXAM: hematoma to left lower leg Neuro: COMMON NORMALS: patient oriented x3, moves all extremities and no focal motor deficits Psych: COMMON NORMALS: mental status grossly normal, Normal thought process present and cooperative THOUGHT PROCESS: Normal thought process present Skin: COMMON NORMALS: no rashes or lesions noted and no wounds GENERAL SKIN EXAM: no rashes or lesions noted Course Vital Signs: Vital signs: Vital Signs Temperature 98.3 F 05/23/22 19:37 Pulse Rate 68 05/23/22 19:37 Respiratory Rate 18 05/23/22 19:37 Blood Pressure 177/83 05/23/22 19:37 Pulse Oximetry 99 05/23/22 19:37 Oxygen Delivery Me thod 05/23/22 19:37 MDM - Extremity (Nontraumatic) Medical Decision Making Patient presents here with a hematoma to his left lower leg from an injury x-ray shows no fracture ultrasound shows no DVT patient is well-appearing here and stable for discharge. Patient has no signs of compartment syndrome Discharge Plan Discharge Patient Disposition: Home Clinical Impression: Hematoma of left lower extremity Condition: Stable Prescriptions: No Action alprazolam [Xanax] 0.5 mg tablet 0.5 mg PO BID PRN (Reason: anxiety) Qty: 60 5RF levothyroxine 88 mcg tablet See Rx Instructions .ROUTE .COMPLEX Qty: 90 0RF Dose Instruction: Take 1 tablet by mouth once daily Rx Instructions: Take 1 tablet by mouth once daily pantoprazole 40 mg tablet,delayed release (DR/EC) 40 mg PO DAILY Qty: 90 0RF clopidogrel 75 mg tablet 75 mg PO DAILY Qty: 90 1RF lisinopril 5 mg tablet 5 mg PO DAILY Qty: 90 1RF metoprolol tartrate [Lopressor] 50 mg tablet 50 mg PO BID Qty: 180 1RF aspirin 81 mg Tablet,Delayed Release (Dr/Ec) 81 mg PO DAILY Qty: 30 0RF Discharge Orders: Discharge ED (Routine); Ordered 05/23/22 Ordered By: Travis Landers Referrals: Mavis Calderon DO [Primary Care Provider] - 1-3 days Discharge Diet: Advance as tolerated Discharge Activity: Resume usual activity Coding Level of Care Code ED [facility] Hand for Chg Fwd Exam Comprehensive
--- NOTE | 2022-05-23 20:54 | XRR_ITS ---
PROCEDURE INFORMATION: Exam: XR Left Tibia and Fibula Exam date and time: 05/23/2022 9:04 PM Age: 71 years old Clinical indication: Difficulty in walking and other: Bruising; Swelling lt lower leg; Patient HX: PT has noticed pain getting worse left lower leg; Swelling and bruising after a screen door hit him 10 days ago. Had US venous also; Additional info: Injury TECHNIQUE: Imaging protocol: Radiologic exam of the Left tibia and fibula. Views: 2 views. COMPARISON: [place] [id number] 05/23/2022 8:34 PM FINDINGS: Bones/joints: Normal. Soft tissues: Soft tissue swelling/bruising medially. XR/XR tibia fibula LT 2V [id number] IMPRESSION: No acute bony findings.
== END 2022-05-23 21:20 | disposition home or self-care (01) ==
PROVIDERS: Emergency Provider Emergency Medicine; PCP Family Medicine
DX: S80.12XA Contusion of left lower leg, initial encounter (principal); Z79.02 Long term (current) use of antithrombotics/antiplatelets; Z79.82 Long term (current) use of aspirin; Z87.891 Personal history of nicotine dependence; I10 Essential (primary) hypertension; W20.8XXA Other cause of strike by thrown, projected or falling object, initial encounter
CPT/HCPCS: 73590; 93971; 99284

== ENCOUNTER → 2022-06-20 13:37 | Outpatient (BNVA) | payer MEDICARE, SELFPAY | PROVIDERS: PCP Family Medicine; Visit Provider Internal Medicine | DX: I25.10 Atherosclerotic heart disease of native coronary artery without angina pectoris (principal); I10 Essential (primary) hypertension; E78.5 Hyperlipidemia, unspecified; Z87.891 Personal history of nicotine dependence | CPT/HCPCS: 99214 ==

== ENCOUNTER → 2022-12-20 13:15 | Outpatient (BNVA) | payer MEDICARE, SELFPAY | PROVIDERS: PCP Family Medicine; Visit Provider Nurse Practitioner Family | DX: I25.10 Atherosclerotic heart disease of native coronary artery without angina pectoris (principal); I10 Essential (primary) hypertension; Z87.891 Personal history of nicotine dependence; Z79.82 Long term (current) use of aspirin | CPT/HCPCS: 99214 ==

== ENCOUNTER → 2022-12-27 10:56 | Outpatient (BNVA) | payer MEDICARE, SELFPAY | PROVIDERS: PCP Family Medicine; Visit Provider Family Medicine | DX: E03.9 Hypothyroidism, unspecified (principal); R35.1 Nocturia; I10 Essential (primary) hypertension | CPT/HCPCS: 80053; 80061; 84153; 84443; 85025 ==

== ENCOUNTER → 2023-02-14 10:47 | Outpatient (BNVA) | payer MEDICARE, SELFPAY | PROVIDERS: PCP Family Medicine; Referring Provider Family Medicine; Visit Provider Family Medicine | DX: E03.9 Hypothyroidism, unspecified (principal) | CPT/HCPCS: 84439; 84443 ==